=== PATIENT | male | born 1940 | race Caucasian/White ===

== ENCOUNTER 2023-02-21 07:38 | Inpatient (IN) | payer MEDICARE, OTHER ==
[~2023-02-21] VITALS: Ht 172.7 cm; Wt 77.5 kg
[2023-02-21] MEDS ORDERED: NS 500 ML IV ONE (08:15)
[2023-02-21 08:16] LABS: BASO # 0.1 10^3/uL (0.0-0.2); BASO % 0.4 % (0.0-1.0); EOS # 0.9 10^3/uL (0.0-0.5); EOS % 4.2 % (0.0-3.0); HEMATOCRIT 35.4 % (42.0-52.0); HEMOGLOBIN 11.7 g/dl (13.5-17.5); LYMPH # 1.9 10^3/uL (1.5-5.0); LYMPH % 9.2 % (24.0-44.0); MEAN CORPUSCULAR HGB CONC 33.1 g/dl (32.0-36.5); MEAN CORPUSCULAR VOLUME 108.9 fl (80.0-96.0); MONO # 1.5 10^3/uL (0.0-0.8); MONO % 7.5 % (2.0-8.0); NEUTROPHILS # 15.8 10^3/uL (1.5-8.5); NEUTROPHILS % 78.2 % (36.0-66.0); PLATELET COUNT, AUTOMATED 223 10^3/uL (150-450); RED BLOOD COUNT 3.25 10^6/uL (4.30-6.10); WHITE BLOOD COUNT 20.2 10^3/uL (4.0-10.0)
[2023-02-21 08:34] LABS: LIPASE 67 U/L (12-53)
[2023-02-21 08:36] LABS: ALBUMIN 4.2 G/DL (3.2-5.2); ALKALINE PHOSPHATASE 62 U/L (46-116); ALT/SGPT 32 U/L (7.0-40); AST/SGOT 23 U/L (<34); BILIRUBIN,DIRECT 0.2 MG/DL (<0.4); BILIRUBIN,TOTAL 0.6 MG/DL (0.3-1.2); TOTAL PROTEIN 6.8 G/DL (5.7-8.2)
[2023-02-21 08:40] LABS: THYROID STIMULATING HORMONE 1.415 uIU/ML (0.55-4.78)
[2023-02-21 08:41] LABS: CPK CREATINE PHOSPHOKINASE 74 U/L (46-171); FREE T4 0.98 NG/DL (0.89-1.76); MB/CK RELATIVE INDEX 1.35 (< OR =4)
[2023-02-21] MEDS ORDERED: ISOVUE-370 76% 100ML VIAL As Ordered ONE ×2 (08:58→09:32)
[2023-02-21] MEDS ORDERED: PIPERACILLIN/TAZOBACTAM SOD 4.5 GM in D5W MINI-BAG PLUS 50 ML IV ONE (09:00)
[2023-02-21] MEDS ORDERED: fentaNYL 100 MCG/2 ML INJECTION IV PRN (09:00)
[2023-02-21] MEDS ORDERED: NS 2,090 ML in IV 1 EA IV ONE (09:00)
[2023-02-21 09:41] LABS: PROCALCITONIN 0.05 ng/ml
[2023-02-21 10:04] LABS: CK-MB VALUE MASS 1.3 NG/ML (<3.6)
[2023-02-21 10:08] LABS: INR 1.07; PROTHROMBIN TIME 13.6 SECONDS (12.5-14.5)
[2023-02-21 10:12] LABS: RSV AMPLIFICATION NEGATIVE (NEGATIVE)
[2023-02-21 10:18] LABS: MB/CK RELATIVE INDEX 1.91 (< OR =4)
[2023-02-21 10:42] LABS: C REACTIVE PROTEIN QUANTITATIV < 0.40 MG/DL (<1.0)
[2023-02-21 10:44] LABS: AMYLASE 97 U/L (30-118)
[2023-02-21] MEDS ORDERED: MED REC IN PROGRESS XX SCH (11:40)
[2023-02-21] MEDS ORDERED: POTA-298 PO (12:29)
[2023-02-21] MEDS ORDERED: VITA-158 PO (12:29)
[2023-02-21] MEDS ORDERED: GABA-1171 PO (12:29)
[2023-02-21] MEDS ORDERED: ATOR80TA59 PO (12:29)
[2023-02-21] MEDS ORDERED: ASPI-527 PO (12:29)
[2023-02-21] MEDS ORDERED: OMEP20TA2 PO (12:29)
[2023-02-21] MEDS ORDERED: AMLO1TAB24 PO (12:29)
[2023-02-21] MEDS ORDERED: FURO20TA2 PO (12:29)
[2023-02-21] MEDS ORDERED: NAPR-849 PO (12:29)
[2023-02-21] MEDS ORDERED: ISOS1TAB36 PO (12:29)
[2023-02-21] MEDS ORDERED: D32000TA PO (12:29)
[2023-02-21] MEDS ORDERED: SPIR12.9 INH (12:29)
[2023-02-21] MEDS ORDERED: ACET-861 PO (12:29)
[2023-02-21] MEDS ORDERED: DIAZ2TAB PO (12:29)
[2023-02-21] MEDS ORDERED: FERR150C PO (12:29)
[2023-02-21] MEDS ORDERED: METO50TA7 PO (12:29)
[2023-02-21] MEDS ORDERED: ARTIDRO4 OS (12:29)
[2023-02-21] MEDS ORDERED: MAALOX 30 ML SUSP *UDC PO PRN (12:35)
[2023-02-21] MEDS ORDERED: patient comment (12:35)
[2023-02-21] MEDS ORDERED: ONDANSETRON 4MG 2ML VIAL IV PRN (12:45)
[2023-02-21] MEDS ORDERED: NS 1,000 ML IV SCH (13:30)
[2023-02-21 13:57] VITALS: BP 129/64; TEMP 97.2; O2SAT 98
[2023-02-21] MEDS ORDERED: ROSU40TA4 PO (15:09)
[2023-02-21] MEDS ORDERED: REFR1DRO8 OP (15:09)
[2023-02-21] MEDS ORDERED: HOME MED LIST COMPLETE! XX SCH (15:25)
[2023-02-21] MEDS ORDERED: diazePAM 2 MG TAB PO PRN (15:40)
[2023-02-21] MEDS: GABAPENTIN 100 MG CAP PO SCH ×2 (16:53→20:49)
[2023-02-21] MEDS: OMEPRAZOLE 20MG CAP PO SCH (16:53)
[2023-02-21 20:00] VITALS: BP 144/79; TEMP 96.7; O2SAT 96
[2023-02-21] MEDS: METOPROLOL TART 25 MG TABLET PO SCH (20:50)
[2023-02-21] MEDS: DOCUSATE SODIUM 100MG CAPSULE PO SCH (20:50)
[2023-02-21] MEDS ORDERED: ATORVASTATIN 20 MG TAB PO SCH (21:00)
[2023-02-22 04:00] VITALS: BP 139/67; TEMP 97.5; O2SAT 96
[2023-02-22 05:30] LABS: BASO # 0.1 10^3/uL (0.0-0.2); BASO % 0.5 % (0.0-1.0); EOS # 1.1 10^3/uL (0.0-0.5); EOS % 10.5 % (0.0-3.0); HEMATOCRIT 32.2 % (42.0-52.0); HEMOGLOBIN 10.4 g/dl (13.5-17.5); LYMPH # 1.7 10^3/uL (1.5-5.0); LYMPH % 16.8 % (24.0-44.0); MEAN CORPUSCULAR HEMOGLOBIN 35.3 pg (27.0-33.0); MEAN CORPUSCULAR HGB CONC 32.3 g/dl (32.0-36.5); MEAN CORPUSCULAR VOLUME 109.2 fl (80.0-96.0); MONO # 0.9 10^3/uL (0.0-0.8); MONO % 8.7 % (2.0-8.0); NEUTROPHILS # 6.3 10^3/uL (1.5-8.5); NEUTROPHILS % 62.8 % (36.0-66.0); PLATELET COUNT, AUTOMATED 164 10^3/uL (150-450); RED BLOOD COUNT 2.95 10^6/uL (4.30-6.10)
[2023-02-22 05:55] LABS: ALBUMIN 3.3 G/DL (3.2-5.2); ALKALINE PHOSPHATASE 50 U/L (46-116); ALT/SGPT 23 U/L (7.0-40); AST/SGOT 15 U/L (<34); BILIRUBIN,TOTAL 0.4 MG/DL (0.3-1.2); BLOOD UREA NITROGEN 17 MG/DL (9-23); CALCIUM LEVEL 8.5 MG/DL (8.3-10.6); CARBON DIOXIDE LEVEL 26 MMOL/L (20-31); CHLORIDE LEVEL 109 MMOL/L (98-107); CREATININE FOR GFR 0.69 MG/DL (0.70-1.30); GLOMERULAR FILTRATION RATE > 60.0 (>35); GLUCOSE, FASTING 80 MG/DL (74-106); MAGNESIUM LEVEL 1.5 MG/DL (1.8-2.4); POTASSIUM SERUM 3.6 MMOL/L (3.5-5.1); SODIUM LEVEL 143 MMOL/L (136-145); TOTAL PROTEIN 5.4 G/DL (5.7-8.2)
[2023-02-22] MEDS: MAG SULF 1GM/100ML (MAG RUN) 100 ML IV SCH ×2 (06:22→07:21)
[2023-02-22 08:05] VITALS: BP 132/61; TEMP 97.6; O2SAT 97
[2023-02-22] MEDS: DOCUSATE SODIUM 100MG CAPSULE PO SCH ×2 (08:15→22:21)
[2023-02-22] MEDS: ENOXAPARIN 40MG/0.4ML SYRINGE (J1650 PER 10MG) SC SCH (08:15)
[2023-02-22] MEDS: OMEPRAZOLE 20MG CAP PO SCH (08:15)
[2023-02-22] MEDS: GABAPENTIN 100 MG CAP PO SCH ×3 (08:15→22:22)
[2023-02-22] MEDS: amLODIPine 5 MG TAB PO SCH (08:16)
[2023-02-22] MEDS: ASPIRIN ENTERIC 325MG TAB PO SCH (08:16)
[2023-02-22] MEDS: FUROSEMIDE 20 MG TAB PO SCH (08:16)
[2023-02-22] MEDS: METOPROLOL TART 25 MG TABLET PO SCH ×2 (08:16→22:21)
[2023-02-22] MEDS: POTASSIUM CHLORIDE 10MEQ SR TABLET PO SCH (08:16)
[2023-02-22] MEDS: ISOSORBIDE MON. (IMDUR) 60MG XR TAB PO SCH (08:57)
[2023-02-22] MEDS ORDERED: OMEPRAZOLE 20MG CAP PO SCH (09:00)
[2023-02-22] MEDS ORDERED: SENNA 8.6 MG TAB (SENOKOT) PO PRN (10:15)
[2023-02-22] MEDS: ACETAMINOPHEN TAB 650MG DOSE (2X325MG) PO PRN ×3 (11:30→23:56)
[2023-02-22] MEDS: LIDOCAINE 5% (LIDODERM) PATCH TD SCH (11:30)
[2023-02-22] MEDS: MOM 30ML SUSPENSION UDC PO SCH (11:30)
[2023-02-22] MEDS: POLYVINYL ALCOHOL OPHTH SOLN 15ML (LIQUITEARS) OU PRN (11:31)
[2023-02-22 13:48] LABS: BASO # 0.1 10^3/uL (0.0-0.2); BASO % 0.5 % (0.0-1.0); EOS # 0.7 10^3/uL (0.0-0.5); EOS % 7.6 % (0.0-3.0); HEMATOCRIT 29.9 % (42.0-52.0); HEMOGLOBIN 9.8 g/dl (13.5-17.5); LYMPH # 1.2 10^3/uL (1.5-5.0); LYMPH % 12.8 % (24.0-44.0); MEAN CORPUSCULAR HGB CONC 32.8 g/dl (32.0-36.5); MEAN CORPUSCULAR VOLUME 109.9 fl (80.0-96.0); MONO # 0.9 10^3/uL (0.0-0.8); MONO % 9.4 % (2.0-8.0); NEUTROPHILS # 6.6 10^3/uL (1.5-8.5); NEUTROPHILS % 69.2 % (36.0-66.0); PLATELET COUNT, AUTOMATED 180 10^3/uL (150-450); RED BLOOD COUNT 2.72 10^6/uL (4.30-6.10); WHITE BLOOD COUNT 9.5 10^3/uL (4.0-10.0)
[2023-02-22 14:33] LABS: PERCENT SATURATION 28.3 % (19.7-50.0)
[2023-02-22 14:37] LABS: FERRITIN 977.7 NG/ML (10.5-307.3); FOLATE 15.14 NG/ML (>5.4)
[2023-02-22 15:57] VITALS: BP 135/65; TEMP 97.9; O2SAT 96
[2023-02-22 21:24] VITALS: BP 120/60; TEMP 97.4; O2SAT 99
[2023-02-22] MEDS: ATORVASTATIN 20 MG TAB PO SCH (22:22)
[2023-02-23 04:59] VITALS: BP 119/58; TEMP 97.1; O2SAT 94
[2023-02-23 05:45] LABS: BASO % 0.5 % (0.0-1.0); HEMATOCRIT 29.3 % (42.0-52.0); HEMOGLOBIN 9.7 g/dl (13.5-17.5); LYMPH % 23.8 % (24.0-44.0); MEAN CORPUSCULAR HEMOGLOBIN 35.9 pg (27.0-33.0); MEAN CORPUSCULAR HGB CONC 33.1 g/dl (32.0-36.5); MEAN CORPUSCULAR VOLUME 108.5 fl (80.0-96.0); MONO # 0.7 10^3/uL (0.0-0.8); MONO % 8.8 % (2.0-8.0); NEUTROPHILS # 4.5 10^3/uL (1.5-8.5); NEUTROPHILS % 54.4 % (36.0-66.0); PLATELET COUNT, AUTOMATED 170 10^3/uL (150-450); WHITE BLOOD COUNT 8.2 10^3/uL (4.0-10.0)
[2023-02-23 06:12] LABS: ALBUMIN 3.2 G/DL (3.2-5.2); ALKALINE PHOSPHATASE 49 U/L (46-116); ALT/SGPT 24 U/L (7.0-40); AST/SGOT 15 U/L (<34); BILIRUBIN,TOTAL 0.4 MG/DL (0.3-1.2); BLOOD UREA NITROGEN 14 MG/DL (9-23); CALCIUM LEVEL 8.4 MG/DL (8.3-10.6); CARBON DIOXIDE LEVEL 26 MMOL/L (20-31); CHLORIDE LEVEL 105 MMOL/L (98-107); CREATININE FOR GFR 0.69 MG/DL (0.70-1.30); GLOMERULAR FILTRATION RATE > 60.0 (>35); GLUCOSE, FASTING 128 MG/DL (74-106); MAGNESIUM LEVEL 1.8 MG/DL (1.8-2.4); POTASSIUM SERUM 3.6 MMOL/L (3.5-5.1); SODIUM LEVEL 139 MMOL/L (136-145); TOTAL PROTEIN 5.3 G/DL (5.7-8.2)
[2023-02-23] MEDS: ENOXAPARIN 40MG/0.4ML SYRINGE (J1650 PER 10MG) SC SCH (08:56)
[2023-02-23] MEDS: ASPIRIN ENTERIC 325MG TAB PO SCH (08:57)
[2023-02-23] MEDS: MOM 30ML SUSPENSION UDC PO SCH (08:57)
[2023-02-23] MEDS: FUROSEMIDE 20 MG TAB PO SCH (08:57)
[2023-02-23] MEDS: LIDOCAINE 5% (LIDODERM) PATCH TD SCH (08:57)
[2023-02-23 09:00] VITALS: BP 155/74
[2023-02-23] MEDS: METOPROLOL TART 25 MG TABLET PO SCH ×2 (09:00→20:31)
[2023-02-23] MEDS: GABAPENTIN 100 MG CAP PO SCH ×3 (09:01→21:07)
[2023-02-23] MEDS: OMEPRAZOLE 20MG CAP PO SCH (09:01)
[2023-02-23] MEDS: ISOSORBIDE MON. (IMDUR) 60MG XR TAB PO SCH (09:01)
[2023-02-23] MEDS: amLODIPine 5 MG TAB PO SCH (09:01)
[2023-02-23] MEDS: DOCUSATE SODIUM 100MG CAPSULE PO SCH ×2 (09:01→21:06)
[2023-02-23] MEDS: POTASSIUM CHLORIDE 10MEQ SR TABLET PO SCH (09:02)
[2023-02-23] MEDS ORDERED: ALBUTEROL 90 MCG/ACT 8GM HFA INHALER INH PRN (09:55)
[2023-02-23] MEDS: POLYVINYL ALCOHOL OPHTH SOLN 15ML (LIQUITEARS) OU PRN ×2 (10:01→15:12)
[2023-02-23] MEDS: SYMBICORT 80/4.5MCG INHALER 6GM INH SCH ×2 (11:08→19:46)
[2023-02-23] MEDS: TIOTROPIUM INHALER/CAPSULE (SPIRIVA) INH SCH (11:08)
[2023-02-23] MEDS: ACETAMINOPHEN TAB 650MG DOSE (2X325MG) PO PRN ×2 (15:12→23:32)
[2023-02-23 16:01] VITALS: BP 105/56; TEMP 97.6; O2SAT 97
[2023-02-23 19:21] VITALS: BP 98/55; TEMP 97.8; O2SAT 96
[2023-02-23] MEDS: ATORVASTATIN 20 MG TAB PO SCH (21:06)
[2023-02-24 03:30] VITALS: BP 140/63; TEMP 97.3; O2SAT 95
[2023-02-24 05:57] LABS: BASO # 0.1 10^3/uL (0.0-0.2); BASO % 0.6 % (0.0-1.0); EOS # 0.8 10^3/uL (0.0-0.5); EOS % 9.8 % (0.0-3.0); HEMATOCRIT 28.3 % (42.0-52.0); HEMOGLOBIN 9.5 g/dl (13.5-17.5); LYMPH # 1.7 10^3/uL (1.5-5.0); LYMPH % 22.1 % (24.0-44.0); MEAN CORPUSCULAR HEMOGLOBIN 36.5 pg (27.0-33.0); MEAN CORPUSCULAR HGB CONC 33.6 g/dl (32.0-36.5); MEAN CORPUSCULAR VOLUME 108.8 fl (80.0-96.0); MONO # 0.5 10^3/uL (0.0-0.8); MONO % 6.6 % (2.0-8.0); NEUTROPHILS # 4.7 10^3/uL (1.5-8.5); NEUTROPHILS % 60.4 % (36.0-66.0); PLATELET COUNT, AUTOMATED 169 10^3/uL (150-450); WHITE BLOOD COUNT 7.7 10^3/uL (4.0-10.0)
[2023-02-24 06:24] LABS: ALBUMIN 3.2 G/DL (3.2-5.2); ALKALINE PHOSPHATASE 50 U/L (46-116); ALT/SGPT 25 U/L (7.0-40); AST/SGOT 20 U/L (<34); BILIRUBIN,TOTAL 0.3 MG/DL (0.3-1.2); BLOOD UREA NITROGEN 13 MG/DL (9-23); CALCIUM LEVEL 8.1 MG/DL (8.3-10.6); CARBON DIOXIDE LEVEL 25 MMOL/L (20-31); CHLORIDE LEVEL 105 MMOL/L (98-107); CREATININE FOR GFR 0.69 MG/DL (0.70-1.30); GLOMERULAR FILTRATION RATE > 60.0 (>35); GLUCOSE, FASTING 124 MG/DL (74-106); MAGNESIUM LEVEL 1.8 MG/DL (1.8-2.4); POTASSIUM SERUM 3.9 MMOL/L (3.5-5.1); SODIUM LEVEL 140 MMOL/L (136-145); TOTAL PROTEIN 5.3 G/DL (5.7-8.2)
[2023-02-24 07:54] VITALS: BP 137/83; TEMP 97.5; O2SAT 97
[2023-02-24] MEDS: SYMBICORT 80/4.5MCG INHALER 6GM INH SCH ×2 (08:03→19:06)
[2023-02-24] MEDS: TIOTROPIUM INHALER/CAPSULE (SPIRIVA) INH SCH (08:03)
[2023-02-24] MEDS ORDERED: PILL CUTTER 1 EACH XX PRN (08:10)
[2023-02-24] MEDS: LIDOCAINE 5% (LIDODERM) PATCH TD SCH (08:43)
[2023-02-24] MEDS: ENOXAPARIN 40MG/0.4ML SYRINGE (J1650 PER 10MG) SC SCH (08:43)
[2023-02-24] MEDS: POTASSIUM CHLORIDE 10MEQ SR TABLET PO SCH (08:44)
[2023-02-24] MEDS: FUROSEMIDE 20 MG TAB PO SCH (08:44)
[2023-02-24] MEDS: DOCUSATE SODIUM 100MG CAPSULE PO SCH ×2 (08:44→20:33)
[2023-02-24] MEDS: METOPROLOL TART 25 MG TABLET PO SCH ×2 (08:44→20:34)
[2023-02-24] MEDS: ASPIRIN ENTERIC 325MG TAB PO SCH (08:44)
[2023-02-24] MEDS: OMEPRAZOLE 20MG CAP PO SCH (08:44)
[2023-02-24] MEDS: GABAPENTIN 100 MG CAP PO SCH ×3 (08:45→20:33)
[2023-02-24] MEDS: traMADol 50 MG TAB PO PRN (08:45)
[2023-02-24] MEDS: amLODIPine 5 MG TAB PO SCH (08:45)
[2023-02-24] MEDS: ISOSORBIDE MON. (IMDUR) 60MG XR TAB PO SCH (08:51)
[2023-02-24] MEDS: MOM 30ML SUSPENSION UDC PO SCH (08:53)
[2023-02-24 19:23] VITALS: BP 116/59; TEMP 97.1; O2SAT 95
[2023-02-24] MEDS: ATORVASTATIN 20 MG TAB PO SCH (20:33)
[2023-02-24] MEDS: ACETAMINOPHEN TAB 650MG DOSE (2X325MG) PO PRN (20:35)
[2023-02-25 05:17] LABS: BASO % 0.5 % (0.0-1.0); EOS # 0.6 10^3/uL (0.0-0.5); EOS % 8.5 % (0.0-3.0); HEMATOCRIT 31.2 % (42.0-52.0); HEMOGLOBIN 10.5 g/dl (13.5-17.5); LYMPH # 1.6 10^3/uL (1.5-5.0); LYMPH % 21.4 % (24.0-44.0); MEAN CORPUSCULAR HEMOGLOBIN 36.5 pg (27.0-33.0); MEAN CORPUSCULAR HGB CONC 33.7 g/dl (32.0-36.5); MEAN CORPUSCULAR VOLUME 108.3 fl (80.0-96.0); MONO # 0.6 10^3/uL (0.0-0.8); MONO % 7.9 % (2.0-8.0); NEUTROPHILS # 4.4 10^3/uL (1.5-8.5); NEUTROPHILS % 60.9 % (36.0-66.0); PLATELET COUNT, AUTOMATED 169 10^3/uL (150-450); RED BLOOD COUNT 2.88 10^6/uL (4.30-6.10); WHITE BLOOD COUNT 7.3 10^3/uL (4.0-10.0)
[2023-02-25 05:55] LABS: ALBUMIN 3.5 G/DL (3.2-5.2); ALKALINE PHOSPHATASE 52 U/L (46-116); ALT/SGPT 23 U/L (7.0-40); AST/SGOT 13 U/L (<34); BILIRUBIN,TOTAL 0.5 MG/DL (0.3-1.2); BLOOD UREA NITROGEN 10 MG/DL (9-23); CALCIUM LEVEL 8.5 MG/DL (8.3-10.6); CARBON DIOXIDE LEVEL 28 MMOL/L (20-31); CHLORIDE LEVEL 103 MMOL/L (98-107); CREATININE FOR GFR 0.64 MG/DL (0.70-1.30); GLOMERULAR FILTRATION RATE > 60.0 (>35); GLUCOSE, FASTING 96 MG/DL (74-106); MAGNESIUM LEVEL 1.8 MG/DL (1.8-2.4); POTASSIUM SERUM 3.8 MMOL/L (3.5-5.1); SODIUM LEVEL 139 MMOL/L (136-145); TOTAL PROTEIN 5.7 G/DL (5.7-8.2)
[2023-02-25] MEDS: SYMBICORT 80/4.5MCG INHALER 6GM INH SCH ×2 (07:52→20:07)
[2023-02-25] MEDS: TIOTROPIUM INHALER/CAPSULE (SPIRIVA) INH SCH (07:52)
[2023-02-25 08:07] VITALS: BP 130/72; TEMP 97.7; O2SAT 96
[2023-02-25] MEDS: LIDOCAINE 5% (LIDODERM) PATCH TD SCH (08:13)
[2023-02-25] MEDS: ASPIRIN ENTERIC 325MG TAB PO SCH (08:13)
[2023-02-25] MEDS: FUROSEMIDE 20 MG TAB PO SCH (08:14)
[2023-02-25] MEDS: OMEPRAZOLE 20MG CAP PO SCH (08:14)
[2023-02-25] MEDS: METOPROLOL TART 25 MG TABLET PO SCH ×2 (08:14→20:22)
[2023-02-25] MEDS: ACETAMINOPHEN TAB 650MG DOSE (2X325MG) PO PRN (08:14)
[2023-02-25] MEDS: ISOSORBIDE MON. (IMDUR) 60MG XR TAB PO SCH (08:15)
[2023-02-25] MEDS: GABAPENTIN 100 MG CAP PO SCH ×3 (08:15→20:22)
[2023-02-25] MEDS: amLODIPine 5 MG TAB PO SCH (08:15)
[2023-02-25] MEDS: DOCUSATE SODIUM 100MG CAPSULE PO SCH ×2 (08:15→20:21)
[2023-02-25] MEDS: POTASSIUM CHLORIDE 10MEQ SR TABLET PO SCH (08:15)
[2023-02-25] MEDS: MOM 30ML SUSPENSION UDC PO SCH (08:16)
[2023-02-25] MEDS: ENOXAPARIN 40MG/0.4ML SYRINGE (J1650 PER 10MG) SC SCH (08:18)
[2023-02-25 19:50] VITALS: BP 112/57; TEMP 97.8; O2SAT 96
[2023-02-25] MEDS: ATORVASTATIN 20 MG TAB PO SCH (20:21)
[2023-02-26] MEDS: traMADol 50 MG TAB PO PRN (02:50)
[2023-02-26 04:41] LABS: BASO # 0.1 10^3/uL (0.0-0.2); BASO % 0.7 % (0.0-1.0); EOS # 0.7 10^3/uL (0.0-0.5); EOS % 7.5 % (0.0-3.0); HEMATOCRIT 31.7 % (42.0-52.0); HEMOGLOBIN 10.4 g/dl (13.5-17.5); LYMPH # 2.1 10^3/uL (1.5-5.0); LYMPH % 23.1 % (24.0-44.0); MEAN CORPUSCULAR HGB CONC 32.8 g/dl (32.0-36.5); MEAN CORPUSCULAR VOLUME 109.7 fl (80.0-96.0); MONO # 0.8 10^3/uL (0.0-0.8); NEUTROPHILS # 5.3 10^3/uL (1.5-8.5); NEUTROPHILS % 58.9 % (36.0-66.0); PLATELET COUNT, AUTOMATED 190 10^3/uL (150-450); RED BLOOD COUNT 2.89 10^6/uL (4.30-6.10)
[2023-02-26 05:06] LABS: ALBUMIN 3.4 G/DL (3.2-5.2); ALKALINE PHOSPHATASE 51 U/L (46-116); ALT/SGPT 23 U/L (7.0-40); AST/SGOT 13 U/L (<34); BILIRUBIN,TOTAL 0.3 MG/DL (0.3-1.2); BLOOD UREA NITROGEN 13 MG/DL (9-23); CALCIUM LEVEL 8.5 MG/DL (8.3-10.6); CARBON DIOXIDE LEVEL 26 MMOL/L (20-31); CHLORIDE LEVEL 105 MMOL/L (98-107); CREATININE FOR GFR 0.73 MG/DL (0.70-1.30); GLOMERULAR FILTRATION RATE > 60.0 (>35); GLUCOSE, FASTING 101 MG/DL (74-106); MAGNESIUM LEVEL 1.6 MG/DL (1.8-2.4); SODIUM LEVEL 140 MMOL/L (136-145); TOTAL PROTEIN 5.6 G/DL (5.7-8.2)
[2023-02-26] MEDS ORDERED: MAGNESIUM OXIDE 400MG TAB (MAG-OX) PO ONE (07:00)
[2023-02-26] MEDS ORDERED: MAG SULF 1GM/100ML (MAG RUN) 1 GM in IV 1 EA IV ONE ×2 (07:00→08:00)
[2023-02-26 07:26] VITALS: BP 129/71; TEMP 97.6; O2SAT 96
[2023-02-26] MEDS: TIOTROPIUM INHALER/CAPSULE (SPIRIVA) INH SCH (08:19)
[2023-02-26] MEDS: SYMBICORT 80/4.5MCG INHALER 6GM INH SCH ×2 (08:20→19:26)
[2023-02-26] MEDS: MOM 30ML SUSPENSION UDC PO SCH (09:00)
[2023-02-26] MEDS: ENOXAPARIN 40MG/0.4ML SYRINGE (J1650 PER 10MG) SC SCH (09:44)
[2023-02-26] MEDS: OMEPRAZOLE 20MG CAP PO SCH (09:44)
[2023-02-26] MEDS: ASPIRIN ENTERIC 325MG TAB PO SCH (09:44)
[2023-02-26] MEDS: FUROSEMIDE 20 MG TAB PO SCH (09:45)
[2023-02-26] MEDS: METOPROLOL TART 25 MG TABLET PO SCH ×2 (09:45→20:47)
[2023-02-26] MEDS: POTASSIUM CHLORIDE 10MEQ SR TABLET PO SCH (09:45)
[2023-02-26] MEDS: DOCUSATE SODIUM 100MG CAPSULE PO SCH ×2 (09:45→20:47)
[2023-02-26] MEDS: amLODIPine 5 MG TAB PO SCH (09:46)
[2023-02-26] MEDS: ACETAMINOPHEN TAB 650MG DOSE (2X325MG) PO PRN ×2 (09:46→20:47)
[2023-02-26] MEDS: GABAPENTIN 100 MG CAP PO SCH ×3 (09:47→20:47)
[2023-02-26] MEDS: LIDOCAINE 5% (LIDODERM) PATCH TD SCH (09:47)
[2023-02-26] MEDS: POLYVINYL ALCOHOL OPHTH SOLN 15ML (LIQUITEARS) OU PRN (09:51)
[2023-02-26] MEDS: ISOSORBIDE MON. (IMDUR) 60MG XR TAB PO SCH (09:51)
[2023-02-26 20:09] VITALS: BP 105/60; TEMP 98.9; O2SAT 96
[2023-02-26] MEDS: ATORVASTATIN 20 MG TAB PO SCH (20:47)
[2023-02-27 04:42] LABS: BASO # 0.1 10^3/uL (0.0-0.2); BASO % 0.7 % (0.0-1.0); EOS # 0.7 10^3/uL (0.0-0.5); EOS % 9.1 % (0.0-3.0); HEMATOCRIT 31.1 % (42.0-52.0); HEMOGLOBIN 10.3 g/dl (13.5-17.5); LYMPH # 2.2 10^3/uL (1.5-5.0); LYMPH % 26.8 % (24.0-44.0); MEAN CORPUSCULAR HGB CONC 33.1 g/dl (32.0-36.5); MEAN CORPUSCULAR VOLUME 108.7 fl (80.0-96.0); MONO # 0.8 10^3/uL (0.0-0.8); MONO % 9.9 % (2.0-8.0); NEUTROPHILS # 4.2 10^3/uL (1.5-8.5); NEUTROPHILS % 52.3 % (36.0-66.0); PLATELET COUNT, AUTOMATED 179 10^3/uL (150-450); RED BLOOD COUNT 2.86 10^6/uL (4.30-6.10); WHITE BLOOD COUNT 8.1 10^3/uL (4.0-10.0)
[2023-02-27 05:10] LABS: ALBUMIN 3.4 G/DL (3.2-5.2); ALKALINE PHOSPHATASE 50 U/L (46-116); ALT/SGPT 21 U/L (7.0-40); AST/SGOT 10 U/L (<34); BILIRUBIN,TOTAL 0.5 MG/DL (0.3-1.2); BLOOD UREA NITROGEN 12 MG/DL (9-23); CALCIUM LEVEL 8.3 MG/DL (8.3-10.6); CARBON DIOXIDE LEVEL 29 MMOL/L (20-31); CHLORIDE LEVEL 102 MMOL/L (98-107); CREATININE FOR GFR 0.72 MG/DL (0.70-1.30); GLOMERULAR FILTRATION RATE > 60.0 (>35); GLUCOSE, FASTING 87 MG/DL (74-106); MAGNESIUM LEVEL 1.6 MG/DL (1.8-2.4); POTASSIUM SERUM 4.4 MMOL/L (3.5-5.1); SODIUM LEVEL 138 MMOL/L (136-145); TOTAL PROTEIN 5.6 G/DL (5.7-8.2)
[2023-02-27] MEDS: TIOTROPIUM INHALER/CAPSULE (SPIRIVA) INH SCH (08:00)
[2023-02-27 08:27] VITALS: BP 148/70; TEMP 97.6; O2SAT 99
[2023-02-27] MEDS: SYMBICORT 80/4.5MCG INHALER 6GM INH SCH ×2 (08:33→18:47)
[2023-02-27] MEDS: LIDOCAINE 5% (LIDODERM) PATCH TD SCH (08:46)
[2023-02-27] MEDS: ISOSORBIDE MON. (IMDUR) 60MG XR TAB PO SCH (08:47)
[2023-02-27] MEDS: ASPIRIN ENTERIC 325MG TAB PO SCH (08:47)
[2023-02-27] MEDS: OMEPRAZOLE 20MG CAP PO SCH (08:47)
[2023-02-27] MEDS: ENOXAPARIN 40MG/0.4ML SYRINGE (J1650 PER 10MG) SC SCH (08:47)
[2023-02-27] MEDS: FUROSEMIDE 20 MG TAB PO SCH (08:48)
[2023-02-27] MEDS: METOPROLOL TART 25 MG TABLET PO SCH ×2 (08:49→20:39)
[2023-02-27] MEDS: MOM 30ML SUSPENSION UDC PO SCH (08:50)
[2023-02-27] MEDS: DOCUSATE SODIUM 100MG CAPSULE PO SCH ×2 (08:50→20:38)
[2023-02-27] MEDS: POTASSIUM CHLORIDE 10MEQ SR TABLET PO SCH (08:50)
[2023-02-27] MEDS: GABAPENTIN 100 MG CAP PO SCH ×3 (08:50→20:38)
[2023-02-27] MEDS: amLODIPine 5 MG TAB PO SCH (08:51)
[2023-02-27] MEDS ORDERED: TRAM50TA2 PO (14:45)
[2023-02-27] MEDS ORDERED: ATOR40TA75 PO (14:45)
[2023-02-27] MEDS ORDERED: OMEP-173 PO (14:45)
[2023-02-27] MEDS ORDERED: SYMB80INH INH (14:45)
[2023-02-27] MEDS ORDERED: TIOT18INH INH (14:45)
[2023-02-27] MEDS ORDERED: FURO20TA2 PO (14:45)
[2023-02-27] MEDS ORDERED: COLA100C5 PO (14:45)
[2023-02-27] MEDS ORDERED: LIDO5TD TD (14:45)
[2023-02-27] MEDS: traMADol 50 MG TAB PO PRN (18:49)
[2023-02-27] MEDS: ATORVASTATIN 20 MG TAB PO SCH (20:38)
[2023-02-27] MEDS: ACETAMINOPHEN TAB 650MG DOSE (2X325MG) PO PRN (22:59)
[2023-02-28 04:37] VITALS: BP 130/71; TEMP 98.1; O2SAT 96
[2023-02-28 04:59] LABS: BASO # 0.1 10^3/uL (0.0-0.2); BASO % 0.5 % (0.0-1.0); EOS # 0.7 10^3/uL (0.0-0.5); EOS % 7.2 % (0.0-3.0); HEMATOCRIT 31.8 % (42.0-52.0); HEMOGLOBIN 10.6 g/dl (13.5-17.5); LYMPH # 2.5 10^3/uL (1.5-5.0); LYMPH % 24.7 % (24.0-44.0); MEAN CORPUSCULAR HEMOGLOBIN 36.3 pg (27.0-33.0); MEAN CORPUSCULAR HGB CONC 33.3 g/dl (32.0-36.5); MEAN CORPUSCULAR VOLUME 108.9 fl (80.0-96.0); MONO % 9.6 % (2.0-8.0); NEUTROPHILS # 5.8 10^3/uL (1.5-8.5); NEUTROPHILS % 57.1 % (36.0-66.0); PLATELET COUNT, AUTOMATED 184 10^3/uL (150-450); RED BLOOD COUNT 2.92 10^6/uL (4.30-6.10); WHITE BLOOD COUNT 10.1 10^3/uL (4.0-10.0)
[2023-02-28 05:23] LABS: ALBUMIN 3.4 G/DL (3.2-5.2); ALKALINE PHOSPHATASE 50 U/L (46-116); ALT/SGPT 19 U/L (7.0-40); AST/SGOT 13 U/L (<34); BILIRUBIN,TOTAL 0.5 MG/DL (0.3-1.2); BLOOD UREA NITROGEN 13 MG/DL (9-23); CALCIUM LEVEL 8.7 MG/DL (8.3-10.6); CARBON DIOXIDE LEVEL 26 MMOL/L (20-31); CHLORIDE LEVEL 101 MMOL/L (98-107); CREATININE FOR GFR 0.79 MG/DL (0.70-1.30); GLOMERULAR FILTRATION RATE > 60.0 (>35); GLUCOSE, FASTING 85 MG/DL (74-106); MAGNESIUM LEVEL 1.5 MG/DL (1.8-2.4); POTASSIUM SERUM 4.3 MMOL/L (3.5-5.1); SODIUM LEVEL 136 MMOL/L (136-145); TOTAL PROTEIN 5.5 G/DL (5.7-8.2)
[2023-02-28] MEDS ORDERED: MAGNESIUM OXIDE 400MG TAB (MAG-OX) PO ONE (07:00)
[2023-02-28] MEDS: TIOTROPIUM INHALER/CAPSULE (SPIRIVA) INH SCH (07:36)
[2023-02-28] MEDS: SYMBICORT 80/4.5MCG INHALER 6GM INH SCH (07:37)
[2023-02-28 08:18] VITALS: BP 123/58; TEMP 97.5; O2SAT 96
[2023-02-28] MEDS: ASPIRIN ENTERIC 325MG TAB PO SCH (08:22)
[2023-02-28] MEDS: OMEPRAZOLE 20MG CAP PO SCH (08:23)
[2023-02-28] MEDS: ACETAMINOPHEN TAB 650MG DOSE (2X325MG) PO PRN (08:23)
[2023-02-28] MEDS: LIDOCAINE 5% (LIDODERM) PATCH TD SCH (08:24)
[2023-02-28] MEDS: DOCUSATE SODIUM 100MG CAPSULE PO SCH (08:24)
[2023-02-28] MEDS: ENOXAPARIN 40MG/0.4ML SYRINGE (J1650 PER 10MG) SC SCH (08:24)
[2023-02-28] MEDS: GABAPENTIN 100 MG CAP PO SCH (08:24)
[2023-02-28] MEDS: POTASSIUM CHLORIDE 10MEQ SR TABLET PO SCH (08:25)
[2023-02-28] MEDS: ISOSORBIDE MON. (IMDUR) 60MG XR TAB PO SCH (08:26)
[2023-02-28 08:27] VITALS: BP 123/58
[2023-02-28] MEDS: amLODIPine 5 MG TAB PO SCH (08:27)
[2023-02-28] MEDS: METOPROLOL TART 25 MG TABLET PO SCH (08:27)
[2023-02-28] MEDS: MOM 30ML SUSPENSION UDC PO SCH (08:28)
[2023-02-28] MEDS: FUROSEMIDE 20 MG TAB PO SCH (08:28)
[2023-02-28] MEDS: traMADol 50 MG TAB PO PRN (09:46)
[2023-02-28] MEDS ORDERED: TRAM50TA2 PO (11:03)
[2023-02-28] MEDS ORDERED: MAGN400T2 PO (11:08)
== END 2023-02-28 14:06 | disposition home or self-care (01) | DRG 392 ==
LOC: EDBD 07:38 → M ED 07:38 → M ED INP 11:08 → OBSVTOIN 11:18 → M PCU 13:47
PROVIDERS: ADMIT Internal Medicine; ATTEND Internal Medicine
DX: R11.2 Nausea with vomiting, unspecified (principal); I10 Essential (primary) hypertension; E78.5 Hyperlipidemia, unspecified; R07.89 Other chest pain; I69.392 Facial weakness following cerebral infarction; G62.9 Polyneuropathy, unspecified; R10.13 Epigastric pain; R54 Age-related physical debility; J44.9 Chronic obstructive pulmonary disease, unspecified; R42 Dizziness and giddiness; M54.50 Low back pain, unspecified; R29.6 Repeated falls; K59.00 Constipation, unspecified; K21.9 Gastro-esophageal reflux disease without esophagitis; I25.10 Atherosclerotic heart disease of native coronary artery without angina pectoris; D72.829 Elevated white blood cell count, unspecified; I69.320 Aphasia following cerebral infarction; Z95.1 Presence of aortocoronary bypass graft; Z85.46 Personal history of malignant neoplasm of prostate; Z92.3 Personal history of irradiation; Z95.2 Presence of prosthetic heart valve; Z79.82 Long term (current) use of aspirin; Z79.899 Other long term (current) drug therapy

== ENCOUNTER 2023-04-13 09:42 | Emergency (ER) | payer MEDICARE, MEDICAID ==
[~2023-04-13] VITALS: Ht 172.7 cm; Wt 81.3 kg
[~2023-04-13 09:42] MED LIST: ACET-861 PO; AMLO1TAB24 PO; ARTIDRO4 OS; ASPI-527 PO; ATOR40TA75 PO; ATOR80TA59 PO; COLA100C5 PO; D32000TA PO; DIAZ2TAB PO; FERR150C PO; FURO20TA2 PO; GABA-1171 PO; IBUP-1114 PO; ISOS1TAB36 PO; LIDO5TD TD; MAGN400T2 PO; METO50TA7 PO; NAPR-849 PO; OMEP-173 PO; OMEP20TA2 PO; PERC5TAB12 PO; POTA-298 PO; REFR1DRO8 OP; ROSU20TA61 PO; ROSU40TA4 PO; SPIR12.9 INH; SYMB80INH INH; TIOT18INH INH; TRAM50TA2 PO; VITA-158 PO; patient comment
[2023-04-13] MEDS ORDERED: IPRATROPIUM 0.5MG/ALBUTEROL 2.5MG INH SOL UD 3ML (DUONEB) NEB ONE (10:00)
[2023-04-13 10:10] LABS: VENOUS BASE EXCESS -0.6 (-2.0-2.0); VENOUS PARTIAL PRESSURE CO2 44.9 mmHg (38.0-50.0); VENOUS PARTIAL PRESSURE O2 39.8 mmHg (30.0-50.0); VENOUS PH 7.363 UNITS (7.330-7.430); VENOUS STANDARD HCO3 23.4 MMOL/L; VENOUS TOTAL CO2 26.3 MMOL/L (24.0-28.0)
[2023-04-13 10:17] LABS: BASO # 0.1 10^3/uL (0.0-0.2); BASO % 0.5 % (0.0-1.0); EOS # 0.5 10^3/uL (0.0-0.5); EOS % 5.4 % (0.0-3.0); HEMATOCRIT 31.5 % (42.0-52.0); HEMOGLOBIN 10.9 g/dl (13.5-17.5); LYMPH # 2.1 10^3/uL (1.5-5.0); LYMPH % 22.3 % (24.0-44.0); MEAN CORPUSCULAR HEMOGLOBIN 36.9 pg (27.0-33.0); MEAN CORPUSCULAR HGB CONC 34.6 g/dl (32.0-36.5); MEAN CORPUSCULAR VOLUME 106.8 fl (80.0-96.0); MONO % 10.2 % (2.0-8.0); NEUTROPHILS # 5.7 10^3/uL (1.5-8.5); NEUTROPHILS % 60.7 % (36.0-66.0); PLATELET COUNT, AUTOMATED 203 10^3/uL (150-450); RED BLOOD COUNT 2.95 10^6/uL (4.30-6.10); WHITE BLOOD COUNT 9.4 10^3/uL (4.0-10.0)
[2023-04-13 10:27] LABS: INR 1.04; PROTHROMBIN TIME 13.3 SECONDS (12.5-14.5)
[2023-04-13 10:45] LABS: CK-MB VALUE MASS 1.2 NG/ML (<3.6)
[2023-04-13 10:48] LABS: ALKALINE PHOSPHATASE 66 U/L (46-116); ALT/SGPT 18 U/L (7.0-40); AST/SGOT 21 U/L (<34); BILIRUBIN,DIRECT 0.2 MG/DL (<0.4); BILIRUBIN,TOTAL 0.7 MG/DL (0.3-1.2); BLOOD UREA NITROGEN 16 MG/DL (9-23); CALCIUM LEVEL 8.8 MG/DL (8.3-10.6); CARBON DIOXIDE LEVEL 25 MMOL/L (20-31); CHLORIDE LEVEL 104 MMOL/L (98-107); CREATININE FOR GFR 0.75 MG/DL (0.70-1.30); GLOMERULAR FILTRATION RATE > 60.0 (>35); GLUCOSE, FASTING 96 MG/DL (74-106); POTASSIUM SERUM 4.2 MMOL/L (3.5-5.1); SODIUM LEVEL 137 MMOL/L (136-145); TOTAL PROTEIN 6.5 G/DL (5.7-8.2)
[2023-04-13 10:50] LABS: THYROID STIMULATING HORMONE 2.915 uIU/ML (0.55-4.78)
[2023-04-13 10:53] LABS: PARTIAL THROMBOPLASTIN TIME < 20.0 SECONDS (24.8-34.2)
[2023-04-13 10:54] LABS: CPK CREATINE PHOSPHOKINASE 84 U/L (46-171); MB/CK RELATIVE INDEX 1.42 (< OR =4); PROCALCITONIN <0.04 ng/ml
[2023-04-13 12:03] LABS: CK-MB VALUE MASS 1.3 NG/ML (<3.6); MB/CK RELATIVE INDEX 1.78 (< OR =4)
[2023-04-13] MEDS ORDERED: predniSONE 20 MG TAB PO ONE (14:10)
[2023-04-13] MEDS ORDERED: PRED20TA PO (14:13)
[2023-04-13] MEDS ORDERED: VENTAER INH (14:13)
[2023-04-13 14:30] VITALS: BP 127/76; TEMP 96.6; O2SAT 99
== END 2023-04-13 15:02 | disposition home or self-care (01) ==
LOC: M ED 09:42 → EDBD 09:42 → M ED 15:02
DX: R06.02 Shortness of breath (principal); I25.10 Atherosclerotic heart disease of native coronary artery without angina pectoris; J44.9 Chronic obstructive pulmonary disease, unspecified; E78.5 Hyperlipidemia, unspecified; I10 Essential (primary) hypertension; Z86.73 Personal history of transient ischemic attack (TIA), and cerebral infarction without residual deficits; Z95.1 Presence of aortocoronary bypass graft; Z79.899 Other long term (current) drug therapy
CPT/HCPCS: 71045; 80048; 80076; 81001; 82550; 82553; 82803; 83605; 83880; 84145; 84443; 84484; 85025; 85610; 85730; 87040; 87486; 87581; 87633; 87798; 93005; 93041; 94640; 94760; 99285; J7512

== ENCOUNTER 2023-04-29 07:12 | Emergency (ER) | payer MEDICARE, MEDICAID ==
[~2023-04-29] VITALS: Ht 172.7 cm; Wt 82.2 kg
[~2023-04-29 07:12] MED LIST changes: +PRED20TA PO; +VENTAER INH
[2023-04-29] MEDS ORDERED: NITROGLYCERIN 2% OINT 1 GM *U/D* PKT TOP ONE ×2 (07:35→22:45)
[2023-04-29 07:48] LABS: BASO # 0.1 10^3/uL (0.0-0.2); BASO % 0.4 % (0.0-1.0); EOS # 0.8 10^3/uL (0.0-0.5); EOS % 4.2 % (0.0-3.0); HEMATOCRIT 32.6 % (42.0-52.0); HEMOGLOBIN 11.2 g/dl (13.5-17.5); LYMPH # 4.1 10^3/uL (1.5-5.0); LYMPH % 21.5 % (24.0-44.0); MEAN CORPUSCULAR HEMOGLOBIN 36.4 pg (27.0-33.0); MEAN CORPUSCULAR HGB CONC 34.4 g/dl (32.0-36.5); MEAN CORPUSCULAR VOLUME 105.8 fl (80.0-96.0); MONO # 0.9 10^3/uL (0.0-0.8); MONO % 4.7 % (2.0-8.0); NEUTROPHILS # 12.9 10^3/uL (1.5-8.5); NEUTROPHILS % 67.4 % (36.0-66.0); PLATELET COUNT, AUTOMATED 181 10^3/uL (150-450); RED BLOOD COUNT 3.08 10^6/uL (4.30-6.10); WHITE BLOOD COUNT 19.2 10^3/uL (4.0-10.0)
[2023-04-29 08:08] LABS: INR 1.05; PROTHROMBIN TIME 13.4 SECONDS (12.5-14.5)
[2023-04-29] MEDS ORDERED: ONDANSETRON 4MG 2ML VIAL IV ONE ×2 (08:10→23:10)
[2023-04-29] MEDS: MORPHINE 2 MG/ML 1ML VIAL IV PRN ×4 (08:20→15:56)
[2023-04-29] MEDS ORDERED: ISOVUE-370 76% 100ML VIAL As Ordered ONE (08:22)
[2023-04-29 08:25] LABS: VENOUS BASE EXCESS -3.2 (-2.0-2.0); VENOUS HCO3 22.9 MMOL/L (23.0-27.0); VENOUS O2 SATURATION 84.6 % (60.0-80.0); VENOUS PARTIAL PRESSURE CO2 45.7 mmHg (38.0-50.0); VENOUS PARTIAL PRESSURE O2 54.8 mmHg (30.0-50.0); VENOUS PH 7.318 UNITS (7.330-7.430); VENOUS STANDARD HCO3 21.5 MMOL/L; VENOUS TOTAL CO2 24.3 MMOL/L (24.0-28.0)
[2023-04-29 08:49] LABS: PARTIAL THROMBOPLASTIN TIME 24.2 SECONDS (24.8-34.2)
[2023-04-29] MEDS ORDERED: HEPARIN SOD (PORCINE) 5000UNITS/ML 1ML VIAL/SYRINGE IV ONE (14:35)
[2023-04-29] MEDS ORDERED: HEPARIN DRIP 25,000 UNITS in IV 1 EA IV SCH ×2 (14:35→17:45)
[2023-04-29] MEDS ORDERED: HEPARIN SOD (PORCINE) 5000UNITS/ML 1ML VIAL/SYRINGE IV PRN (17:45)
[2023-04-29] MEDS ORDERED: MORPHINE 2 MG/ML 1ML VIAL IV ONE (21:15)
[2023-04-29 21:25] LABS: INR 1.14; PROTHROMBIN TIME 14.3 SECONDS (12.5-14.5)
[2023-04-29] MEDS ORDERED: hydrALAZINE 20MG/ML 1ML VIAL IV ONE (22:40)
[2023-04-29 22:49] VITALS: BP 165/101
[2023-04-29 23:49] LABS: BLOOD UREA NITROGEN 12 MG/DL (9-23); CALCIUM LEVEL 8.2 MG/DL (8.3-10.6); CARBON DIOXIDE LEVEL 24 MMOL/L (20-31); CHLORIDE LEVEL 103 MMOL/L (98-107); CREATININE FOR GFR 0.57 MG/DL (0.70-1.30); GLOMERULAR FILTRATION RATE > 60.0 (>35); GLUCOSE, FASTING 105 MG/DL (74-106); MAGNESIUM LEVEL 1.2 MG/DL (1.8-2.4); POTASSIUM SERUM 4.5 MMOL/L (3.5-5.1); SODIUM LEVEL 138 MMOL/L (136-145)
[2023-04-30 03:17] LABS: INR 1.12; PROTHROMBIN TIME 14.1 SECONDS (12.5-14.5)
[2023-04-30 03:19] LABS: PARTIAL THROMBOPLASTIN TIME 83.7 SECONDS (24.8-34.2)
[2023-04-30] MEDS ORDERED: MORPHINE 4 MG/ML 1ML VIAL IV ONE (03:55)
[2023-04-30 06:47] VITALS: BP 154/89; TEMP 98.1; O2SAT 98
[2023-04-30 15:34] LABS: MB/CK RELATIVE INDEX 7.2 (< OR =4)
[2023-04-30 15:35] LABS: CK-MB VALUE MASS 6.2 NG/ML (0.0-10.4)
== END 2023-04-30 06:51 | disposition short-term general hospital (02) ==
LOC: M ED 07:12
DX: I21.4 Non-ST elevation (NSTEMI) myocardial infarction (principal); I44.0 Atrioventricular block, first degree; I44.4 Left anterior fascicular block; I49.1 Atrial premature depolarization; I45.10 Unspecified right bundle-branch block; I45.81 Long QT syndrome; I10 Essential (primary) hypertension; E78.5 Hyperlipidemia, unspecified; F10.10 Alcohol abuse, uncomplicated; Z86.79 Personal history of other diseases of the circulatory system; Z87.891 Personal history of nicotine dependence; Z79.52 Long term (current) use of systemic steroids; Z79.02 Long term (current) use of antithrombotics/antiplatelets; Z79.891 Long term (current) use of opiate analgesic; Z79.83 Long term (current) use of bisphosphonates; Z79.899 Other long term (current) drug therapy
CPT/HCPCS: 70450; 71045; 71275; 74177; 80047; 80048; 81001; 82550; 82553; 82803; 83605; 83735; 83880; 84484; 85025; 85610; 85730; 87040; 87486; 87581; 87633; 87798; 93005; 93041; 93971; 94760; 96365; 96366; 96375; 96376; 99285; J2405; Q9967

== ENCOUNTER 2023-05-12 02:22 | Emergency (ER) | payer MEDICARE, MEDICAID ==
[~2023-05-12] VITALS: Ht 172.7 cm; Wt 81.8 kg
[2023-05-12 02:50] LABS: HEMATOCRIT 26.5 % (42.0-52.0); HEMOGLOBIN 8.8 g/dl (13.5-17.5); MEAN CORPUSCULAR HEMOGLOBIN 36.2 pg (27.0-33.0); MEAN CORPUSCULAR HGB CONC 33.2 g/dl (32.0-36.5); MEAN CORPUSCULAR VOLUME 109.1 fl (80.0-96.0); NEUTROPHILS % 65.2 % (36.0-66.0); PLATELET COUNT, AUTOMATED 281 10^3/uL (150-450); RED BLOOD COUNT 2.43 10^6/uL (4.30-6.10); WHITE BLOOD COUNT 10.1 10^3/uL (4.0-10.0)
[2023-05-12 02:51] LABS: BASO % 0.4 % (0.0-1.0); EOS # 0.7 10^3/uL (0.0-0.5); EOS % 6.9 % (0.0-3.0); LYMPH # 1.8 10^3/uL (1.5-5.0); LYMPH % 17.9 % (24.0-44.0); MONO # 0.8 10^3/uL (0.0-0.8); MONO % 8.1 % (2.0-8.0); NEUTROPHILS # 6.6 10^3/uL (1.5-8.5)
[2023-05-12 03:02] LABS: INR 1.21; PROTHROMBIN TIME 14.9 SECONDS (12.5-14.5)
[2023-05-12 03:22] LABS: CK-MB VALUE MASS 3.3 NG/ML (<3.6); LIPASE 53 U/L (12-53)
[2023-05-12 03:23] LABS: RSV AMPLIFICATION NEGATIVE (NEGATIVE)
[2023-05-12 03:24] LABS: ALBUMIN 3.5 G/DL (3.2-5.2); ALKALINE PHOSPHATASE 64 U/L (46-116); ALT/SGPT 22 U/L (7.0-40); AST/SGOT 20 U/L (<34); BILIRUBIN,DIRECT 0.1 MG/DL (<0.4); BILIRUBIN,TOTAL 0.3 MG/DL (0.3-1.2); BLOOD UREA NITROGEN 30 MG/DL (9-23); CALCIUM LEVEL 8.4 MG/DL (8.3-10.6); CARBON DIOXIDE LEVEL 24 MMOL/L (20-31); CHLORIDE LEVEL 103 MMOL/L (98-107); CREATININE FOR GFR 0.96 MG/DL (0.70-1.30); GLOMERULAR FILTRATION RATE > 60.0 (>35); GLUCOSE, FASTING 96 MG/DL (74-106); POTASSIUM SERUM 4.2 MMOL/L (3.5-5.1); SODIUM LEVEL 135 MMOL/L (136-145)
[2023-05-12] MEDS ORDERED: MORPHINE 4 MG/ML 1ML VIAL IV ONE (03:25)
[2023-05-12 03:27] LABS: CPK CREATINE PHOSPHOKINASE 79 U/L (46-171); MB/CK RELATIVE INDEX 4.17 (< OR =4)
[2023-05-12 04:03] LABS: APPEARANCE, URINE CLEAR (CLEAR); BACTERIA, URINE AUTO NEGATIVE (NEGATIVE); BILIRUBIN, URINE AUTO NEGATIVE (NEGATIVE); BLOOD, URINE BLOOD NEGATIVE (NEGATIVE); COLOR, URINE YELLOW (YELLOW); GLUCOSE, URINE (UA) AUTO NEGATIVE (NEGATIVE); KETONE, URINE AUTO NEGATIVE (NEGATIVE); LEUKOCYTE ESTERASE, URINE AUTO NEGATIVE (NEGATIVE); NITRITE, URINE AUTO NEGATIVE (NEGATIVE); PROTEIN, URINE AUTO NEGATIVE (NEGATIVE); RBC, URINE AUTO 0 /HPF (0-3); SPECIFIC GRAVITY URINE AUTO 1.015 (1.002-1.035); SQUAMOUS EPITHELIAL CELL UR AU 0 /HPF (0-6); UROBILINOGEN, URINE AUTO 0.2 mg/dL (0.0-2.0); WBC, URINE AUTO 0 /HPF (0-3)
[2023-05-12] MEDS ORDERED: ISOVUE-370 76% 100ML VIAL As Ordered ONE (04:56)
[2023-05-12 05:54] LABS: CK-MB VALUE MASS < 1.0 NG/ML (<3.6); CPK CREATINE PHOSPHOKINASE 55 U/L (46-171); MB/CK RELATIVE INDEX 1.81 (< OR =4)
[2023-05-12 09:47] VITALS: BP 134/66; TEMP 97.8; O2SAT 100
== END 2023-05-12 09:51 | disposition home or self-care (01) ==
LOC: M ED 02:22
DX: M79.604 Pain in right leg (principal); M79.601 Pain in right arm; I11.0 Hypertensive heart disease with heart failure; K21.9 Gastro-esophageal reflux disease without esophagitis; E78.5 Hyperlipidemia, unspecified; J44.9 Chronic obstructive pulmonary disease, unspecified; Z79.899 Other long term (current) drug therapy
CPT/HCPCS: 36415; 71045; 71275; 72131; 74174; 80053; 81001; 82248; 82550; 82553; 83605; 83690; 84484; 85025; 85610; 87631; 93005; 93041; 94760; 96374; 99285; Q9967

== ENCOUNTER → 2023-06-19 | Outpatient (CLI) | payer MEDICARE, MEDICAID | LOC: M SOG 07:58 | PROVIDERS: ATTEND Orthopaedic Surgery | DX: M54.50 Low back pain, unspecified (principal) ==

== ENCOUNTER → 2023-09-03 | Outpatient (CLI) | payer MEDICARE, MEDICAID | LOC: M RAD 11:51 | PROVIDERS: ATTEND Podiatrist Foot & Ankle Surgery | DX: I73.89 Other specified peripheral vascular diseases (principal) ==

== ENCOUNTER 2023-11-19 19:03 | Inpatient (IN) | payer MEDICARE, MEDICAID ==
[~2023-11-19 19:03] MED LIST changes: -REFR1DRO8 OP; +REFR1DRO8 OU; -ROSU40TA4 PO; +ROSU40TA63 PO
[2023-11-19 20:45] VITALS: BP 115/63; TEMP 97.6; O2SAT 99
[2023-11-19] MEDS: METOPROLOL TART 25 MG TABLET PO SCH (21:00)
[2023-11-19] MEDS ORDERED: HEPARIN SOD (PORCINE) 5000UNITS/ML 1ML VIAL/SYRINGE SC SCH (21:15)
[2023-11-19] MEDS ORDERED: ONDANSETRON 4MG 2ML VIAL IV PRN (21:15)
[2023-11-19] MEDS: NS 1,000 ML IV SCH (21:51)
[2023-11-19 22:41] LABS: HEMATOCRIT 22.5 % (42.0-52.0); HEMOGLOBIN 7.5 g/dl (13.5-17.5); MEAN CORPUSCULAR HEMOGLOBIN 34.6 pg (27.0-33.0); MEAN CORPUSCULAR HGB CONC 33.3 g/dl (32.0-36.5); MEAN CORPUSCULAR VOLUME 103.7 fl (80.0-96.0); PLATELET COUNT, AUTOMATED 181 10^3/uL (150-450); RED BLOOD COUNT 2.17 10^6/uL (4.30-6.10); WHITE BLOOD COUNT 9.5 10^3/uL (4.0-10.0)
[2023-11-19 23:10] LABS: ALBUMIN 3.5 G/DL (3.2-5.2); ALKALINE PHOSPHATASE 59 U/L (46-116); ALT/SGPT 20 U/L (7.0-40); AST/SGOT 28 U/L (<34); BILIRUBIN,TOTAL 1.4 MG/DL (0.3-1.2); BLOOD UREA NITROGEN 21 MG/DL (9-23); CALCIUM LEVEL 8.4 MG/DL (8.3-10.6); CARBON DIOXIDE LEVEL 26 MMOL/L (20-31); CHLORIDE LEVEL 102 MMOL/L (98-107); CREATININE FOR GFR 1.12 MG/DL (0.70-1.30); GLOMERULAR FILTRATION RATE > 60.0 (>35); GLUCOSE, FASTING 92 MG/DL (74-106); POTASSIUM SERUM 4.5 MMOL/L (3.5-5.1); SODIUM LEVEL 135 MMOL/L (136-145); TOTAL PROTEIN 5.4 G/DL (5.7-8.2)
[2023-11-19 23:15] VITALS: BP 118/56; TEMP 97.9; O2SAT 93
[2023-11-20] VITALS (8 sets, daily range): BP systolic 123–160; BP diastolic 58–80; TEMP 97.3–98.4; O2SAT 94–97
[2023-11-20] MEDS ORDERED: ASPI-615 PO (01:03)
[2023-11-20] MEDS ORDERED: MELA3TAB29 PO (01:03)
[2023-11-20] MEDS ORDERED: METO25TA4 PO (01:03)
[2023-11-20] MEDS ORDERED: PANT-23 PO (01:03)
[2023-11-20] MEDS ORDERED: NITR4TASL SL (01:03)
[2023-11-20] MEDS ORDERED: HYDR-4571 PO (01:03)
[2023-11-20] MEDS ORDERED: CYAN-1 PO (01:03)
[2023-11-20] MEDS ORDERED: BRIL90TA PO (01:03)
[2023-11-20] MEDS ORDERED: GABA-284 PO (01:03)
[2023-11-20] MEDS ORDERED: FARX1TAB3 PO (01:03)
[2023-11-20] MEDS ORDERED: ALBU8.5H INH (01:03)
[2023-11-20] MEDS ORDERED: ASPI-596 PO (01:03)
[2023-11-20] MEDS ORDERED: ONDA4TAB6 PO (01:19)
[2023-11-20] MEDS ORDERED: HOME MED LIST COMPLETE! XX SCH (01:20)
[2023-11-20] MEDS ORDERED: ACETAMINOPHEN 500 MG TAB PO PRN (02:05)
[2023-11-20] MEDS: ATORVASTATIN 20 MG TAB PO SCH (03:18)
[2023-11-20] MEDS: NORCO, ANEXSIA 5/325MG TABLET (HYDROcodone/ACETAMINOPHEN) PO PRN (03:18)
[2023-11-20 05:43] LABS: HEMATOCRIT 27.7 % (42.0-52.0)
[2023-11-20 05:50] LABS: HEMOGLOBIN 9.5 g/dl (13.5-17.5)
[2023-11-20 06:08] LABS: BLOOD UREA NITROGEN 19 MG/DL (9-23); CALCIUM LEVEL 8.4 MG/DL (8.3-10.6); CARBON DIOXIDE LEVEL 26 MMOL/L (20-31); CHLORIDE LEVEL 104 MMOL/L (98-107); CREATININE FOR GFR 0.99 MG/DL (0.70-1.30); GLOMERULAR FILTRATION RATE > 60.0 (>35); GLUCOSE, FASTING 84 MG/DL (74-106); POTASSIUM SERUM 4.6 MMOL/L (3.5-5.1); SODIUM LEVEL 137 MMOL/L (136-145)
[2023-11-20] MEDS ORDERED: NITROGLYCERIN 0.4MG SUBL TABLET SL PRN (07:25)
[2023-11-20] MEDS ORDERED: ALBUTEROL 90 MCG/ACT 8GM HFA INHALER INH PRN (07:25)
[2023-11-20] MEDS ORDERED: EXCEDRIN MIGRAINE TABLET PO SCH (09:00)
[2023-11-20] MEDS: SUCRALFATE SUSP 1GM/10ML UD PO SCH (09:41)
[2023-11-20] MEDS: PANTOPRAZOLE 40MG VIAL IV SCH (09:41)
[2023-11-20] MEDS: ISOSORBIDE MON. (IMDUR) 60MG XR TAB PO SCH (09:41)
[2023-11-20] MEDS: ASPIRIN 81MG ENTERIC TABLET PO SCH (09:41)
[2023-11-20] MEDS: ASCORBIC ACID 500 MG TAB PO SCH (09:41)
[2023-11-20] MEDS: TICAGRELOR 90 MG TABLET (BRILINTA) PO SCH (09:42)
[2023-11-20] MEDS: DAPAGLIFLOZIN PROPANEDIOL 10MG TABLET (FARXIGA) PO SCH (09:42)
[2023-11-20] MEDS: GABAPENTIN 400MG CAP PO SCH (09:42)
[2023-11-20] MEDS ORDERED: EXCEDRIN MIGRAINE TABLET PO PRN (10:10)
[2023-11-20 12:01] LABS: HEMATOCRIT 27.4 % (42.0-52.0); HEMOGLOBIN 9.4 g/dl (13.5-17.5)
[2023-11-20] MEDS ORDERED: SUCR1TAB56 PO (12:16)
== END 2023-11-20 15:04 | disposition home or self-care (01) | DRG 812 ==
LOC: OBSVTOIN 21:11 → M ED INP 21:11 → M PCU 21:53
PROVIDERS: ADMIT Internal Medicine; ATTEND Internal Medicine
PROC: 30233N1 Transfusion of Nonautologous Red Blood Cells into Peripheral Vein, Percutaneous Approach (ICD-10-PCS; principal; 2023-11-20)
DX: D62 Acute posthemorrhagic anemia (principal); K92.2 Gastrointestinal hemorrhage, unspecified; I50.32 Chronic diastolic (congestive) heart failure; I11.0 Hypertensive heart disease with heart failure; I25.10 Atherosclerotic heart disease of native coronary artery without angina pectoris; I25.2 Old myocardial infarction; I25.5 Ischemic cardiomyopathy; K21.9 Gastro-esophageal reflux disease without esophagitis; E78.5 Hyperlipidemia, unspecified; T39.015A Adverse effect of aspirin, initial encounter; I69.320 Aphasia following cerebral infarction; I69.392 Facial weakness following cerebral infarction; G62.9 Polyneuropathy, unspecified; F32.A Depression, unspecified; Z85.46 Personal history of malignant neoplasm of prostate; Z92.3 Personal history of irradiation; J45.909 Unspecified asthma, uncomplicated; Z95.5 Presence of coronary angioplasty implant and graft; Z95.2 Presence of prosthetic heart valve; Z87.891 Personal history of nicotine dependence; Z79.899 Other long term (current) drug therapy; Z79.82 Long term (current) use of aspirin; Z79.02 Long term (current) use of antithrombotics/antiplatelets

== ENCOUNTER → 2023-12-13 | Outpatient (REF) | payer MEDICARE, MEDICAID ==
[~2023-12-13] MED LIST changes: +ALBU8.5H INH; +ASPI-596 PO; +ASPI-615 PO; +BRIL90TA PO; +CYAN-1 PO; +FARX1TAB3 PO; +GABA-284 PO; +HYDR-4571 PO; +MELA3TAB29 PO; +METO25TA4 PO; +NITR4TASL SL; +ONDA-282 PO; +PANT-23 PO; +SUCR1TAB56 PO
[2023-12-13 18:05] LABS: BASO # 0.1 10^3/uL (0.0-0.2); BASO % 0.6 % (0.0-1.0); EOS # 0.3 10^3/uL (0.0-0.5); HEMATOCRIT 36.3 % (42.0-52.0); HEMOGLOBIN 11.6 g/dl (13.5-17.5); MEAN CORPUSCULAR HEMOGLOBIN 33.4 pg (27.0-33.0); MEAN CORPUSCULAR VOLUME 104.6 fl (80.0-96.0); MONO # 0.9 10^3/uL (0.0-0.8); MONO % 8.4 % (2.0-8.0); NEUTROPHILS # 7.5 10^3/uL (1.5-8.5); NEUTROPHILS % 69.5 % (36.0-66.0); PLATELET COUNT, AUTOMATED 206 10^3/uL (150-450); RED BLOOD COUNT 3.47 10^6/uL (4.30-6.10); WHITE BLOOD COUNT 10.8 10^3/uL (4.0-10.0)
[2023-12-13 18:08] LABS: ALBUMIN 4.1 G/DL (3.2-5.2); ALKALINE PHOSPHATASE 84 U/L (46-116); ALT/SGPT 16 U/L (7.0-40); AST/SGOT 12 U/L (<34); BILIRUBIN,TOTAL 0.7 MG/DL (0.3-1.2); BLOOD UREA NITROGEN 18 MG/DL (9-23); CALCIUM LEVEL 9.5 MG/DL (8.3-10.6); CARBON DIOXIDE LEVEL 27 MMOL/L (20-31); CHLORIDE LEVEL 101 MMOL/L (98-107); CREATININE FOR GFR 0.95 MG/DL (0.70-1.30); GLOMERULAR FILTRATION RATE > 60.0 (>35); GLUCOSE, FASTING 94 MG/DL (74-106); POTASSIUM SERUM 4.3 MMOL/L (3.5-5.1); SODIUM LEVEL 136 MMOL/L (136-145); TOTAL PROTEIN 6.4 G/DL (5.7-8.2)
== END ==
LOC: M SFHCLERA 08:06
PROVIDERS: ATTEND Physician Assistant
DX: I50.9 Heart failure, unspecified (principal); R39.9 Unspecified symptoms and signs involving the genitourinary system

== ENCOUNTER 2024-01-25 02:33 | Emergency (ER) | payer MEDICARE, MEDICAID ==
[~2024-01-25] VITALS: Ht 157.5 cm; Wt 66.0 kg
[2024-01-25 02:41] VITALS: TEMP 98.4
[2024-01-25 04:55] LABS: BASO # 0.1 10^3/uL (0.0-0.2); BASO % 0.7 % (0.0-1.0); EOS # 0.3 10^3/uL (0.0-0.5); HEMATOCRIT 34.4 % (42.0-52.0); HEMOGLOBIN 11.2 g/dl (13.5-17.5); LYMPH # 1.4 10^3/uL (1.5-5.0); LYMPH % 16.9 % (24.0-44.0); MEAN CORPUSCULAR HEMOGLOBIN 34.4 pg (27.0-33.0); MEAN CORPUSCULAR HGB CONC 32.6 g/dl (32.0-36.5); MEAN CORPUSCULAR VOLUME 105.5 fl (80.0-96.0); MONO # 0.8 10^3/uL (0.0-0.8); MONO % 9.4 % (2.0-8.0); NEUTROPHILS # 5.7 10^3/uL (1.5-8.5); NEUTROPHILS % 68.3 % (36.0-66.0); PLATELET COUNT, AUTOMATED 183 10^3/uL (150-450); RED BLOOD COUNT 3.26 10^6/uL (4.30-6.10); WHITE BLOOD COUNT 8.3 10^3/uL (4.0-10.0)
[2024-01-25] MEDS: NAPROXEN 250 MG TAB PO ONE (05:10)
[2024-01-25 05:23] LABS: BLOOD UREA NITROGEN 9 MG/DL (9-23); CARBON DIOXIDE LEVEL 30 MMOL/L (20-31); CHLORIDE LEVEL 106 MMOL/L (98-107); CREATININE FOR GFR 0.79 MG/DL (0.70-1.30); GLOMERULAR FILTRATION RATE > 60.0 (>35); GLUCOSE, FASTING 97 MG/DL (74-106); POTASSIUM SERUM 3.7 MMOL/L (3.5-5.1); SODIUM LEVEL 141 MMOL/L (136-145)
[2024-01-25 06:00] VITALS: BP 175/83
[2024-01-25 06:18] VITALS: O2SAT 97
== END 2024-01-25 07:06 | disposition home or self-care (01) ==
LOC: M ED 02:33 → EDBD 02:33 → M ED 07:06
DX: M79.602 Pain in left arm (principal); I44.0 Atrioventricular block, first degree; I45.81 Long QT syndrome; I45.10 Unspecified right bundle-branch block; I25.2 Old myocardial infarction; I25.119 Atherosclerotic heart disease of native coronary artery with unspecified angina pectoris; I50.22 Chronic systolic (congestive) heart failure; I11.0 Hypertensive heart disease with heart failure; Z85.46 Personal history of malignant neoplasm of prostate; Z79.1 Long term (current) use of non-steroidal anti-inflammatories (NSAID); Z79.51 Long term (current) use of inhaled steroids; Z79.899 Other long term (current) drug therapy

== ENCOUNTER → 2024-02-24 | Outpatient (CLI) | payer MEDICARE, MEDICAID ==
[~2024-02-24] MED LIST changes: -ROSU40TA63 PO; +ROSU40TA81 PO
== END ==
LOC: M PAIN 13:00
PROVIDERS: ATTEND Nurse Practitioner Family
DX: M79.10 Myalgia, unspecified site (principal); G89.29 Other chronic pain; I10 Essential (primary) hypertension; E78.5 Hyperlipidemia, unspecified; M54.50 Low back pain, unspecified; Z85.46 Personal history of malignant neoplasm of prostate; Z79.891 Long term (current) use of opiate analgesic; Z79.899 Other long term (current) drug therapy

== ENCOUNTER → 2024-04-09 | Outpatient (REF) ==
[~2024-04-09] MED LIST changes: -ROSU20TA61 PO; +ROSU20TA86 PO
[2024-04-09 10:15] LABS: BASO % 0.4 % (0.0-1.0); EOS # 0.4 10^3/uL (0.0-0.5); HEMATOCRIT 28.3 % (42.0-52.0); HEMOGLOBIN 9.2 g/dl (13.5-17.5); LYMPH # 1.4 10^3/uL (1.5-5.0); LYMPH % 17.6 % (24.0-44.0); MEAN CORPUSCULAR HEMOGLOBIN 34.2 pg (27.0-33.0); MEAN CORPUSCULAR HGB CONC 32.5 g/dl (32.0-36.5); MEAN CORPUSCULAR VOLUME 105.2 fl (80.0-96.0); MONO # 0.7 10^3/uL (0.0-0.8); MONO % 8.8 % (2.0-8.0); NEUTROPHILS # 5.3 10^3/uL (1.5-8.5); NEUTROPHILS % 67.1 % (36.0-66.0); PLATELET COUNT, AUTOMATED 191 10^3/uL (150-450); RED BLOOD COUNT 2.69 10^6/uL (4.30-6.10); WHITE BLOOD COUNT 7.8 10^3/uL (4.0-10.0)
[2024-04-09 10:44] LABS: ALBUMIN 3.2 G/DL (3.2-5.2); ALKALINE PHOSPHATASE 61 U/L (46-116); ALT/SGPT 17 U/L (7.0-40); AST/SGOT 11 U/L (<34); BILIRUBIN,TOTAL 0.4 MG/DL (0.3-1.2); BLOOD UREA NITROGEN 26 MG/DL (9-23); CARBON DIOXIDE LEVEL 28 MMOL/L (20-31); CHLORIDE LEVEL 107 MMOL/L (98-107); CHOLESTEROL LEVEL 103 MG/DL (<200); CHOLESTEROL RISK RATIO 2.82 (<5); CREATININE FOR GFR 0.74 MG/DL (0.70-1.30); GLOMERULAR FILTRATION RATE > 60.0 (>35); GLUCOSE, FASTING 97 MG/DL (74-106); HDL CHOLESTEROL 36.4 MG/DL (>40); LDL CHOLESTEROL 44.6 MG/DL (<100); NON-HDL-C 66.6 MG/DL; POTASSIUM SERUM 4.3 MMOL/L (3.5-5.1); SODIUM LEVEL 141 MMOL/L (136-145); TOTAL PROTEIN 5.7 G/DL (5.7-8.2); TRIGLYCERIDES LEVEL 110 MG/DL (<150)
[2024-04-09 10:45] LABS: VITAMIN B12 LEVEL 1540 PG/ML (211-911)
== END ==
LOC: SKLAB3 08:30
PROVIDERS: ATTEND Internal Medicine
DX: I11.0 Hypertensive heart disease with heart failure (principal); I50.9 Heart failure, unspecified; E78.5 Hyperlipidemia, unspecified; E55.9 Vitamin D deficiency, unspecified; E53.8 Deficiency of other specified B group vitamins; R06.02 Shortness of breath

== ENCOUNTER → 2024-04-14 | Outpatient (CLI) | payer MEDICARE, MEDICAID ==
[~2024-04-14] MED LIST changes: +TRIAMCINOLONE ACETONIDE SUSP 40MG/ML 1ML VIAL As Ordered ONE
== END ==
LOC: M PAIN 08:30
PROVIDERS: ATTEND Anesthesiology
DX: M79.18 Myalgia, other site (principal); G89.29 Other chronic pain; I10 Essential (primary) hypertension; E78.5 Hyperlipidemia, unspecified; R32 Unspecified urinary incontinence; J44.9 Chronic obstructive pulmonary disease, unspecified; I50.9 Heart failure, unspecified; N40.1 Benign prostatic hyperplasia with lower urinary tract symptoms; I25.10 Atherosclerotic heart disease of native coronary artery without angina pectoris; K21.9 Gastro-esophageal reflux disease without esophagitis; I69.328 Other speech and language deficits following cerebral infarction; Z79.02 Long term (current) use of antithrombotics/antiplatelets; Z79.82 Long term (current) use of aspirin; Z79.891 Long term (current) use of opiate analgesic; Z79.899 Other long term (current) drug therapy
CPT/HCPCS: 20552; J0665; J3301

== ENCOUNTER → 2024-05-29 | Outpatient (CLI) | payer MEDICARE, MEDICAID ==
[~2024-05-29] MED LIST changes: -TRIAMCINOLONE ACETONIDE SUSP 40MG/ML 1ML VIAL As Ordered ONE
== END ==
LOC: M PAIN 09:00
PROVIDERS: ATTEND Nurse Practitioner Family
DX: M79.18 Myalgia, other site (principal); G89.29 Other chronic pain; I11.0 Hypertensive heart disease with heart failure; E78.5 Hyperlipidemia, unspecified; M54.50 Low back pain, unspecified; R32 Unspecified urinary incontinence; J44.9 Chronic obstructive pulmonary disease, unspecified; I50.9 Heart failure, unspecified; N40.1 Benign prostatic hyperplasia with lower urinary tract symptoms; I25.10 Atherosclerotic heart disease of native coronary artery without angina pectoris; K21.9 Gastro-esophageal reflux disease without esophagitis; F17.290 Nicotine dependence, other tobacco product, uncomplicated; Z86.73 Personal history of transient ischemic attack (TIA), and cerebral infarction without residual deficits; Z79.02 Long term (current) use of antithrombotics/antiplatelets; Z79.891 Long term (current) use of opiate analgesic; Z79.899 Other long term (current) drug therapy; K92.2 Gastrointestinal hemorrhage, unspecified
CPT/HCPCS: 36415; 80053; 83735; 85027; G0463

== ENCOUNTER → 2024-05-29 | Outpatient (REF) | payer MEDICARE, MEDICAID ==
[2024-05-29 11:24] LABS: HEMATOCRIT 36.6 % (42.0-52.0); HEMOGLOBIN 11.9 g/dl (13.5-17.5); MEAN CORPUSCULAR HEMOGLOBIN 34.4 pg (27.0-33.0); MEAN CORPUSCULAR HGB CONC 32.5 g/dl (32.0-36.5); MEAN CORPUSCULAR VOLUME 105.8 fl (80.0-96.0); PLATELET COUNT, AUTOMATED 238 10^3/uL (150-450); RED BLOOD COUNT 3.46 10^6/uL (4.30-6.10); WHITE BLOOD COUNT 11.8 10^3/uL (4.0-10.0)
[2024-05-29 11:52] LABS: ALBUMIN 3.8 G/DL (3.2-5.2); ALKALINE PHOSPHATASE 61 U/L (40-129); ALT/SGPT 23 U/L (7.0-40); AST/SGOT 15 U/L (<34); BILIRUBIN,TOTAL 0.5 MG/DL (0.3-1.2); BLOOD UREA NITROGEN 55 MG/DL (9-23); CALCIUM LEVEL 9.7 MG/DL (8.3-10.6); CARBON DIOXIDE LEVEL 27 MMOL/L (20-31); CHLORIDE LEVEL 106 MMOL/L (98-107); CREATININE FOR GFR 0.92 MG/DL (0.70-1.30); GLOMERULAR FILTRATION RATE > 60.0 (>35); GLUCOSE, FASTING 88 MG/DL (74-106); MAGNESIUM LEVEL 2.4 MG/DL (1.8-2.4); POTASSIUM SERUM 4.7 MMOL/L (3.5-5.1); SODIUM LEVEL 140 MMOL/L (136-145); TOTAL PROTEIN 6.7 G/DL (5.7-8.2)
== END ==
LOC: SKLAB3 10:44
PROVIDERS: ATTEND Internal Medicine
DX: K92.2 Gastrointestinal hemorrhage, unspecified (principal)

== ENCOUNTER → 2024-06-09 | Outpatient (REF) | payer MEDICARE, MEDICAID | LOC: SKLAB3 12:33 | PROVIDERS: ATTEND Internal Medicine | DX: R06.2 Wheezing (principal); K44.9 Diaphragmatic hernia without obstruction or gangrene; Z95.4 Presence of other heart-valve replacement ==

== ENCOUNTER → 2024-07-14 | Outpatient (REF) | payer MEDICARE, MEDICAID ==
[~2024-07-14] MED LIST changes: +OMEP-611 PO; -OMEP20TA2 PO
[2024-07-14 13:35] LABS: HEMATOCRIT 37.2 % (42.0-52.0); HEMOGLOBIN 11.9 g/dl (13.5-17.5); MEAN CORPUSCULAR HEMOGLOBIN 33.4 pg (27.0-33.0); MEAN CORPUSCULAR VOLUME 104.5 fl (80.0-96.0); PLATELET COUNT, AUTOMATED 215 10^3/uL (150-450); RED BLOOD COUNT 3.56 10^6/uL (4.30-6.10); WHITE BLOOD COUNT 11.4 10^3/uL (4.0-10.0)
[2024-07-14 13:58] LABS: CK-MB VALUE MASS 4.1 NG/ML (<3.6)
[2024-07-14 14:01] LABS: ALBUMIN 3.7 G/DL (3.2-5.2); ALKALINE PHOSPHATASE 61 U/L (40-129); ALT/SGPT 26 U/L (7.0-40); AST/SGOT 21 U/L (<34); BILIRUBIN,TOTAL 0.5 MG/DL (0.3-1.2); BLOOD UREA NITROGEN 38 MG/DL (9-23); CALCIUM LEVEL 9.3 MG/DL (8.3-10.6); CARBON DIOXIDE LEVEL 26 MMOL/L (20-31); CHLORIDE LEVEL 106 MMOL/L (98-107); CPK CREATINE PHOSPHOKINASE 176 U/L (46-171); CREATININE FOR GFR 1.02 MG/DL (0.70-1.30); GLOMERULAR FILTRATION RATE > 60.0 (>35); GLUCOSE, FASTING 111 MG/DL (74-106); MAGNESIUM LEVEL 2.3 MG/DL (1.8-2.4); MB/CK RELATIVE INDEX 2.32 (< OR =4); SODIUM LEVEL 138 MMOL/L (136-145); TOTAL PROTEIN 6.5 G/DL (5.7-8.2)
== END ==
LOC: SKLAB3 12:35
PROVIDERS: ATTEND Internal Medicine
DX: R07.9 Chest pain, unspecified (principal); I44.0 Atrioventricular block, first degree; I45.10 Unspecified right bundle-branch block

== ENCOUNTER → 2024-07-15 | Outpatient (REF) | payer MEDICARE, MEDICAID | LOC: SKLAB3 08:47 | PROVIDERS: ATTEND Internal Medicine | DX: R07.9 Chest pain, unspecified (principal); I70.0 Atherosclerosis of aorta; Z97.8 Presence of other specified devices ==

== ENCOUNTER → 2024-07-16 | Outpatient (REF) | payer MEDICARE, MEDICAID | LOC: SKLAB3 14:00 | PROVIDERS: ATTEND Internal Medicine | DX: J06.9 Acute upper respiratory infection, unspecified (principal) ==

== ENCOUNTER → 2024-07-30 | Outpatient (CLI) | payer MEDICARE, MEDICAID | LOC: M PAIN 09:15 | PROVIDERS: ATTEND Nurse Practitioner Family | DX: M79.18 Myalgia, other site (principal); G89.29 Other chronic pain; I11.0 Hypertensive heart disease with heart failure; E78.5 Hyperlipidemia, unspecified; J44.9 Chronic obstructive pulmonary disease, unspecified; I50.9 Heart failure, unspecified; K21.9 Gastro-esophageal reflux disease without esophagitis; N40.0 Benign prostatic hyperplasia without lower urinary tract symptoms; Z79.02 Long term (current) use of antithrombotics/antiplatelets; Z79.82 Long term (current) use of aspirin; Z79.891 Long term (current) use of opiate analgesic; Z79.899 Other long term (current) drug therapy ==

== ENCOUNTER → 2024-07-31 | Outpatient (REF) | payer MEDICARE, MEDICAID ==
[~2024-07-31] MED LIST changes: +ANOR1AER IN; +CLOP75TA99 PO; +CYAN1000VL IM; +FLOM0.4C39 PO; +IRON65TA2 PO; +LACT10SO94 PO; +LACT20EL PO; +SENN-23 PO; +VITA1CAP25 PO
== END ==
LOC: SKLAB3 13:34
PROVIDERS: ATTEND Internal Medicine
DX: R06.02 Shortness of breath (principal); Z98.890 Other specified postprocedural states

== ENCOUNTER → 2024-07-31 | Outpatient (REF) | payer MEDICARE, MEDICAID | LOC: SKLAB3 13:43 | PROVIDERS: ATTEND Internal Medicine | DX: R06.02 Shortness of breath (principal); Z98.890 Other specified postprocedural states ==

== ENCOUNTER → 2024-08-07 | Outpatient (REF) | payer MEDICARE, MEDICAID ==
[2024-08-07 10:57] LABS: MEAN CORPUSCULAR HEMOGLOBIN 34.2 pg (27.0-33.0); MEAN CORPUSCULAR HGB CONC 33.3 g/dl (32.0-36.5); MEAN CORPUSCULAR VOLUME 102.6 fl (80.0-96.0); PLATELET COUNT, AUTOMATED 232 10^3/uL (150-450); WHITE BLOOD COUNT 17.1 10^3/uL (4.0-10.0)
[2024-08-07 11:38] LABS: ALBUMIN 3.4 G/DL (3.2-5.2); ALKALINE PHOSPHATASE 57 U/L (40-129); ALT/SGPT 28 U/L (7.0-40); AST/SGOT 18 U/L (<34); BILIRUBIN,TOTAL 0.7 MG/DL (0.3-1.2); BLOOD UREA NITROGEN 45 MG/DL (9-23); CALCIUM LEVEL 8.5 MG/DL (8.3-10.6); CARBON DIOXIDE LEVEL 22 MMOL/L (20-31); CHLORIDE LEVEL 107 MMOL/L (98-107); CREATININE FOR GFR 0.97 MG/DL (0.70-1.30); GLOMERULAR FILTRATION RATE > 60.0 (>35); GLUCOSE, FASTING 108 MG/DL (74-106); POTASSIUM SERUM 4.1 MMOL/L (3.5-5.1); SODIUM LEVEL 139 MMOL/L (136-145); TOTAL PROTEIN 5.8 G/DL (5.7-8.2)
== END ==
LOC: SKLAB3 07:00
PROVIDERS: ATTEND Internal Medicine
DX: I10 Essential (primary) hypertension (principal)

== ENCOUNTER → 2024-08-14 | Outpatient (REF) | payer MEDICARE, MEDICAID ==
[2024-08-14 08:16] LABS: HEMOGLOBIN 12.8 g/dl (13.5-17.5); MEAN CORPUSCULAR HEMOGLOBIN 33.7 pg (27.0-33.0); MEAN CORPUSCULAR HGB CONC 32.8 g/dl (32.0-36.5); MEAN CORPUSCULAR VOLUME 102.6 fl (80.0-96.0); PLATELET COUNT, AUTOMATED 165 10^3/uL (150-450); WHITE BLOOD COUNT 12.2 10^3/uL (4.0-10.0)
== END ==
LOC: SKLAB3 07:26
PROVIDERS: ATTEND Internal Medicine
DX: D72.829 Elevated white blood cell count, unspecified (principal)

== ENCOUNTER 2024-08-17 09:50 | Day surgery (SDC) | payer MEDICARE, MEDICAID ==
[~2024-08-17] VITALS: Ht 203.2 cm; Wt 84.5 kg
[~2024-08-17 09:50] MED LIST changes: +LIDOCAINE 2% 100MG/5ML SDV (FOR ANES.) As Ordered ONE; +propofoL 500 MG/50 ML VIAL As Ordered ONE
[2024-08-17] MEDS ORDERED: ePHEDrine SULFATE 25 MG/5 ML(5MG/ML) SYRINGE As Ordered ONE (11:39)
[2024-08-17] MEDS ORDERED: propofoL 200 MG/20 ML VIAL As Ordered ONE (12:05)
[2024-08-17 12:14] VITALS: TEMP 97.4
[2024-08-17 12:40] VITALS: BP 118/66; O2SAT 96
== END 2024-08-17 12:46 | disposition home or self-care (01) ==
LOC: M OPP 09:50
PROVIDERS: ATTEND Internal Medicine Gastroenterology
DX: D12.0 Benign neoplasm of cecum (principal); K57.30 Diverticulosis of large intestine without perforation or abscess without bleeding; K64.8 Other hemorrhoids; R19.4 Change in bowel habit; D64.9 Anemia, unspecified; Z79.02 Long term (current) use of antithrombotics/antiplatelets; K44.9 Diaphragmatic hernia without obstruction or gangrene; K22.89 Other specified disease of esophagus; K92.1 Melena; Z86.73 Personal history of transient ischemic attack (TIA), and cerebral infarction without residual deficits; Z79.51 Long term (current) use of inhaled steroids; Z79.891 Long term (current) use of opiate analgesic; Z79.899 Other long term (current) drug therapy; J43.9 Emphysema, unspecified; Z95.1 Presence of aortocoronary bypass graft; Z95.2 Presence of prosthetic heart valve

== ENCOUNTER → 2024-09-03 | Outpatient (CLI) | payer MEDICARE, MEDICAID ==
[~2024-09-03] MED LIST changes: -LIDOCAINE 2% 100MG/5ML SDV (FOR ANES.) As Ordered ONE; -propofoL 500 MG/50 ML VIAL As Ordered ONE
== END ==
LOC: M RAD 07:51
PROVIDERS: ATTEND Pain Medicine Interventional Pain Medicine
DX: M54.16 Radiculopathy, lumbar region (principal)

== ENCOUNTER → 2024-09-18 | Outpatient (REF) | payer MEDICARE, MEDICAID | LOC: SKLAB3 10:07 | PROVIDERS: ATTEND Internal Medicine | DX: R06.02 Shortness of breath (principal); R06.2 Wheezing; K44.9 Diaphragmatic hernia without obstruction or gangrene; Z95.1 Presence of aortocoronary bypass graft; Z95.2 Presence of prosthetic heart valve ==

== ENCOUNTER → 2024-09-23 | Outpatient (REF) | payer MEDICARE, MEDICAID ==
[2024-09-23 07:37] LABS: BLOOD UREA NITROGEN 27 MG/DL (9-23); CREATININE FOR GFR 0.91 MG/DL (0.70-1.30); GLOMERULAR FILTRATION RATE > 60.0 (>35)
== END ==
LOC: SKLAB3 07:00
PROVIDERS: ATTEND Internal Medicine
DX: Z01.818 Encounter for other preprocedural examination (principal)

== ENCOUNTER → 2024-09-29 | Outpatient (CLI) | payer MEDICARE, MEDICAID ==
[~2024-09-29] MED LIST changes: +PROHANCE 279.3MG/ML 15ML VIAL As Ordered ONE
== END ==
LOC: M RAD 12:31
PROVIDERS: ATTEND Pain Medicine Interventional Pain Medicine
DX: M54.16 Radiculopathy, lumbar region (principal)
CPT/HCPCS: 72158; A9576

== ENCOUNTER → 2024-10-27 | Outpatient (REF) | payer MEDICARE, MEDICAID ==
[~2024-10-27] MED LIST changes: -FLOM0.4C39 PO; -PROHANCE 279.3MG/ML 15ML VIAL As Ordered ONE; +TAMS-18 PO
[2024-10-27 07:48] LABS: HEMATOCRIT 37.9 % (42.0-52.0); HEMOGLOBIN 12.2 g/dl (13.5-17.5); MEAN CORPUSCULAR HEMOGLOBIN 34.3 pg (27.0-33.0); MEAN CORPUSCULAR HGB CONC 32.2 g/dl (32.0-36.5); MEAN CORPUSCULAR VOLUME 106.5 fl (80.0-96.0); PLATELET COUNT, AUTOMATED 232 10^3/uL (150-450); RED BLOOD COUNT 3.56 10^6/uL (4.30-6.10); WHITE BLOOD COUNT 11.5 10^3/uL (4.0-10.0)
[2024-10-27 08:38] LABS: BILIRUBIN,TOTAL 0.8 MG/DL (0.3-1.2); CALCIUM LEVEL 9.2 MG/DL (8.3-10.6); CHOLESTEROL RISK RATIO 2.88 (<5); CREATININE FOR GFR 1.07 MG/DL (0.70-1.30); HDL CHOLESTEROL 35.4 MG/DL (>40); LDL CHOLESTEROL 42.6 MG/DL (<100); NON-HDL-C 66.6 MG/DL; POTASSIUM SERUM 4.5 MMOL/L (3.5-5.1); TOTAL PROTEIN 6.6 G/DL (5.7-8.2)
== END ==
LOC: SKLAB3 07:00
PROVIDERS: ATTEND Internal Medicine
DX: E53.8 Deficiency of other specified B group vitamins (principal); I10 Essential (primary) hypertension

== ENCOUNTER → 2025-01-12 | Outpatient (REF) | payer MEDICARE, MEDICAID | LOC: M SFHCDERM 16:58 | PROVIDERS: ATTEND Nurse Practitioner Family | DX: T14.8XXA Other injury of unspecified body region, initial encounter (principal) ==

== ENCOUNTER → 2025-01-14 | Outpatient (REF) | payer MEDICARE, MEDICAID ==
[2025-01-14 07:52] LABS: PLATELET COUNT, AUTOMATED 260 10^3/uL (150-450)
[2025-01-14 08:19] LABS: CALCIUM LEVEL 9.1 MG/DL (8.3-10.6); CARBON DIOXIDE LEVEL 27.0 MMOL/L (20-31); CHLORIDE LEVEL 104.0 MMOL/L (98-107); CREATININE FOR GFR 1.02 MG/DL (0.70-1.30); GLOMERULAR FILTRATION RATE 71.6 (>35); POTASSIUM SERUM 4.0 MMOL/L (3.5-5.1); SODIUM LEVEL 141.0 MMOL/L (136-145)
== END ==
LOC: SKLAB3 07:00
PROVIDERS: ATTEND Internal Medicine
DX: N18.9 Chronic kidney disease, unspecified (principal)

== ENCOUNTER → 2025-01-21 | Outpatient (REF) | payer MEDICARE, MEDICAID ==
[2025-01-21 07:51] LABS: PLATELET COUNT, AUTOMATED 217 10^3/uL (150-450)
[2025-01-21 08:29] LABS: CALCIUM LEVEL 8.6 MG/DL (8.3-10.6); CARBON DIOXIDE LEVEL 24.0 MMOL/L (20-31); CHLORIDE LEVEL 102.0 MMOL/L (98-107); CREATININE FOR GFR 1.36 MG/DL (0.70-1.30); GLOMERULAR FILTRATION RATE 50.7 (>35); POTASSIUM SERUM 4.1 MMOL/L (3.5-5.1); SODIUM LEVEL 139.0 MMOL/L (136-145)
== END ==
LOC: SKLAB3 07:00
PROVIDERS: ATTEND Internal Medicine
DX: N18.9 Chronic kidney disease, unspecified (principal)

== ENCOUNTER → 2025-01-26 | Outpatient (REF) | payer MEDICARE, MEDICAID ==
[2025-01-26 08:29] LABS: PLATELET COUNT, AUTOMATED 187 10^3/uL (150-450)
[2025-01-26 08:50] LABS: ALT/SGPT 20.0 U/L (7.0-40); AST/SGOT 24.0 U/L (<34); CALCIUM LEVEL 8.2 MG/DL (8.3-10.6); CARBON DIOXIDE LEVEL 26.0 MMOL/L (20-31); CHLORIDE LEVEL 104.0 MMOL/L (98-107); CREATININE FOR GFR 1.05 MG/DL (0.70-1.30); GLOMERULAR FILTRATION RATE 69.1 (>35); POTASSIUM SERUM 3.9 MMOL/L (3.5-5.1); SODIUM LEVEL 142.0 MMOL/L (136-145)
== END ==
LOC: SKLAB3 07:00
PROVIDERS: ATTEND Internal Medicine
DX: I10 Essential (primary) hypertension (principal)

== ENCOUNTER → 2025-01-29 | Outpatient (REF) | payer MEDICARE, MEDICAID ==
[2025-01-29 10:59] LABS: PLATELET COUNT, AUTOMATED 159 10^3/uL (150-450)
[2025-01-29 11:22] LABS: CALCIUM LEVEL 8.0 MG/DL (8.3-10.6); CARBON DIOXIDE LEVEL 20.0 MMOL/L (20-31); CHLORIDE LEVEL 106.0 MMOL/L (98-107); CREATININE FOR GFR 1.45 MG/DL (0.70-1.30); GLOMERULAR FILTRATION RATE 46.9 (>35); POTASSIUM SERUM 4.0 MMOL/L (3.5-5.1); SODIUM LEVEL 143.0 MMOL/L (136-145)
== END ==
LOC: SKLAB3 09:51
PROVIDERS: ATTEND Nurse Practitioner
DX: R50.9 Fever, unspecified (principal)

== ENCOUNTER → 2025-01-29 | Outpatient (REF) | payer MEDICARE, MEDICAID | LOC: SKLAB3 10:00 | PROVIDERS: ATTEND Internal Medicine | DX: Z53.8 Procedure and treatment not carried out for other reasons (principal) ==

== ENCOUNTER → 2025-01-30 | Outpatient (CLI) | payer MEDICARE, MEDICAID ==
[~2025-01-30] MED LIST changes: +ACET1TAB55 PO; +ASPI81CH33 PO; +BACTDSTA PO; +CARB15DR33 OU; +CLIN-250 PO; +ERGO500029 PO; +FURO40TA2 PO; +IPRA0.00 INH; +LINE1TAB6 PO; +PROB250C PO; +SENN18TA PO
[2025-01-30 18:03] LABS: PLATELET COUNT, AUTOMATED 137 10^3/uL (150-450)
== END ==
LOC: SKLAB3 10:04
PROVIDERS: ATTEND Internal Medicine
DX: R06.02 Shortness of breath (principal); R50.9 Fever, unspecified

== ENCOUNTER → 2025-01-31 | Outpatient (REF) | payer MEDICARE, MEDICAID ==
[~2025-01-31] MED LIST changes: -ACET1TAB55 PO; -ASPI81CH33 PO; -BACTDSTA PO; -CARB15DR33 OU; -CLIN-250 PO; -ERGO500029 PO; -FURO40TA2 PO; -IPRA0.00 INH; -LINE1TAB6 PO; -PROB250C PO; -SENN18TA PO
== END ==
LOC: SKLAB3 13:56
PROVIDERS: ATTEND Internal Medicine
DX: R06.02 Shortness of breath (principal); Z98.890 Other specified postprocedural states

== ENCOUNTER → 2025-02-01 | Outpatient (CLI) | payer MEDICARE, MEDICAID | LOC: M RAD 11:28 | PROVIDERS: ATTEND Nurse Practitioner | DX: R60.9 Edema, unspecified (principal) ==

== ENCOUNTER 2025-02-05 13:22 | Inpatient (IN) | payer MEDICARE, MEDICAID ==
[~2025-02-05] VITALS: Ht 172.7 cm; Wt 83.5 kg
[2025-02-05 14:00] LABS: BASO # 0.1 10^3/uL (0.0-0.2); BASO % 0.4 % (0.0-1.0); EOS # 0.3 10^3/uL (0.0-0.5); EOS % 1.6 % (0.0-3.0); LYMPH # 1.0 10^3/uL (1.5-5.0); LYMPH % 5.2 % (24.0-44.0); MONO # 1.0 10^3/uL (0.0-0.8); MONO % 5.0 % (2.0-8.0); NEUTROPHILS # 16.8 10^3/uL (1.5-8.5); NEUTROPHILS % 86.2 % (36.0-66.0); PLATELET COUNT, AUTOMATED 281 10^3/uL (150-450)
[2025-02-05 14:08] LABS: ERYTHROCYTE SEDIMENTATION RATE 85 mm/hr (0-20)
[2025-02-05] MEDS: IPRATROPIUM 0.5 MG/ALBUTEROL 2.5 MG INH SOL UD 3 ML NEB ONE (14:25)
[2025-02-05 14:28] LABS: INR 1.08
[2025-02-05 14:32] LABS: ALT/SGPT 26.0 U/L (7.0-40); AST/SGOT 27.0 U/L (<34); C REACTIVE PROTEIN QUANTITATIV 3.03 MG/DL (<1.0); CALCIUM LEVEL 8.6 MG/DL (8.3-10.6); CARBON DIOXIDE LEVEL 26.0 MMOL/L (20-31); CHLORIDE LEVEL 102.0 MMOL/L (98-107); CREATININE FOR GFR 1.29 MG/DL (0.70-1.30); GLOMERULAR FILTRATION RATE 54.0 (>35); POTASSIUM SERUM 4.6 MMOL/L (3.5-5.1); SODIUM LEVEL 139.0 MMOL/L (136-145)
[2025-02-05] MEDS: VANCOMYCIN HCL 1,750 MG, VIAL MATE ADAPTER 1 EACH in NS 500 ML IV ONE (15:34)
[2025-02-05] MEDS: MORPHINE 2 MG/ML 1 ML VIAL IV ONE (15:34)
[2025-02-05] MEDS: MORPHINE 2 MG/ML 1 ML VIAL IV PRN ×2 (17:54→21:19)
[2025-02-05] MEDS ORDERED: VANCOMYCIN HCL 1,000 MG, VIAL MATE ADAPTER 1 EACH in NS 250 ML IV SCH (18:20)
[2025-02-05] MEDS ORDERED: ONDANSETRON 4MG 2ML VIAL IV PRN (18:30)
[2025-02-05] MEDS ORDERED: ACETAMINOPHEN 325 MG TAB PO PRN (18:30)
[2025-02-05] MEDS ORDERED: FURO40TA2 PO (18:36)
[2025-02-05] MEDS ORDERED: CLIN-250 PO (18:36)
[2025-02-05] MEDS ORDERED: CARB15DR33 OU (18:36)
[2025-02-05] MEDS ORDERED: ASPI81CH33 PO (18:36)
[2025-02-05] MEDS ORDERED: ERGO500029 PO (18:36)
[2025-02-05] MEDS ORDERED: IPRA0.00 INH (18:38)
[2025-02-05] MEDS ORDERED: BACTDSTA PO (18:42)
[2025-02-05] MEDS ORDERED: ACET1TAB55 PO (18:44)
[2025-02-05] MEDS ORDERED: HOME MED LIST COMPLETE! XX SCH (18:45)
[2025-02-05] MEDS: cefTRIAXone SOD 1 GM in DEXTROSE 5% (D5W) ADV/MINI-BAG 50 ML IV SCH (19:06)
[2025-02-05] MEDS: IPRATROPIUM 0.5 MG/ALBUTEROL 2.5 MG INH SOL UD 3 ML NEB SCH (20:19)
[2025-02-05 21:02] VITALS: BP 110/78; TEMP 98.8; O2SAT 99
[2025-02-05 23:22] VITALS: O2SAT 93
[2025-02-06 03:40] VITALS: BP 121/74; TEMP 98.1; O2SAT 92
[2025-02-06 06:33] LABS: VANCOMYCIN RANDOM 10.6 UG/ML
[2025-02-06 06:34] LABS: C REACTIVE PROTEIN QUANTITATIV 5.08 MG/DL (<1.0); CALCIUM LEVEL 8.5 MG/DL (8.3-10.6); CARBON DIOXIDE LEVEL 24.0 MMOL/L (20-31); CHLORIDE LEVEL 101.0 MMOL/L (98-107); CREATININE FOR GFR 1.27 MG/DL (0.70-1.30); GLOMERULAR FILTRATION RATE 55.0 (>35); POTASSIUM SERUM 4.6 MMOL/L (3.5-5.1); SODIUM LEVEL 138.0 MMOL/L (136-145)
[2025-02-06] MEDS: predniSONE 20 MG TAB PO SCH (08:09)
[2025-02-06] MEDS: ENOXAPARIN 40 MG/0.4 ML SYRINGE (J1650 PER 10MG) SC SCH (08:09)
[2025-02-06] MEDS: VANCOMYCIN HCL 1,250 MG, VIAL MATE ADAPTER 1 EACH in NS 250 ML IV SCH (08:10)
[2025-02-06] MEDS ORDERED: ACETAMINOPHEN 325 MG TAB PO PRN (10:20)
[2025-02-06] MEDS ORDERED: NITROGLYCERIN 0.4 MG SUBL TABLET SL PRN (10:20)
[2025-02-06] MEDS ORDERED: ALBUTEROL 90 MCG/ACT 8 GM HFA INHALER INH PRN (10:20)
[2025-02-06 11:55] VITALS: BP 123/76; TEMP 97.8; O2SAT 92
[2025-02-06] MEDS: LACTULOSE 20 GM/30 ML SYRUP UDC PO SCH (12:19)
[2025-02-06] MEDS: ISOSORBIDE MONONITRATE 60 MG XR TAB PO SCH (12:21)
[2025-02-06] MEDS: DAPAGLIFLOZIN PROPANEDIOL 10 MG TABLET PO SCH (12:22)
[2025-02-06] MEDS: ASPIRIN 81 MG CHEWABLE TABLET PO SCH (12:22)
[2025-02-06] MEDS: SENNOSIDES/DOCUSATE SODIUM 8.6 MG/50MG TAB PO SCH (12:22)
[2025-02-06] MEDS: CLOPIDOGREL 75 MG TAB PO SCH (12:22)
[2025-02-06] MEDS: FUROSEMIDE 40 MG TAB PO SCH (12:22)
[2025-02-06] MEDS: ASCORBIC ACID 500 MG TAB PO SCH (12:23)
[2025-02-06] MEDS: PANTOPRAZOLE 40MG TAB PO SCH (12:23)
[2025-02-06] MEDS: METOPROLOL TART 25 MG TABLET PO SCH (12:24)
[2025-02-06] MEDS: IPRATROPIUM 0.5 MG/ALBUTEROL 2.5 MG INH SOL UD 3 ML INH SCH ×2 (12:35→18:55)
[2025-02-06] MEDS: SUCRALFATE 1 GM TAB PO SCH (13:16)
[2025-02-06 14:52] LABS: PLATELET COUNT, AUTOMATED 277 10^3/uL (150-450)
[2025-02-06] MEDS: GABAPENTIN 300 MG CAP PO SCH (16:28)
[2025-02-06 18:40] VITALS: O2SAT 86; O2SAT 94
[2025-02-06 19:34] VITALS: BP 112/75; TEMP 98.2; O2SAT 92
[2025-02-06 21:45] VITALS: O2SAT 93
[2025-02-06] MEDS: ATORVASTATIN 20 MG TAB PO SCH (22:04)
[2025-02-06] MEDS: TAMSULOSIN 0.4 MG CAP PO SCH (22:04)
[2025-02-07] VITALS (16 sets, daily range): BP systolic 113–133; BP diastolic 76–79; TEMP 97.5–99.1; O2SAT 65–97
[2025-02-07] MEDS: IPRATROPIUM 0.5 MG/ALBUTEROL 2.5 MG INH SOL UD 3 ML NEB PRN (02:31)
[2025-02-07] MEDS: MOM 30 ML SUSPENSION UDC PO PRN (04:59)
[2025-02-07] MEDS: DEXTROMETHORPHAN 60 MG/10 ML SUSP 90 ML BTL PO PRN (05:00)
[2025-02-07 06:36] LABS: VANCOMYCIN RANDOM 14.3 UG/ML
[2025-02-07 06:37] LABS: CALCIUM LEVEL 8.6 MG/DL (8.3-10.6); CARBON DIOXIDE LEVEL 22.0 MMOL/L (20-31); CHLORIDE LEVEL 103.0 MMOL/L (98-107); CREATININE FOR GFR 1.22 MG/DL (0.70-1.30); GLOMERULAR FILTRATION RATE 57.7 (>35); POTASSIUM SERUM 4.4 MMOL/L (3.5-5.1); SODIUM LEVEL 138.0 MMOL/L (136-145)
[2025-02-07] MEDS: DOCUSATE SODIUM 100 MG CAPSULE PO SCH (08:30)
[2025-02-07 10:04] LABS: BASO # 0.0 10^3/uL (0.0-0.2); BASO % 0.2 % (0.0-1.0); EOS # 0.0 10^3/uL (0.0-0.5); EOS % 0.1 % (0.0-3.0); LYMPH # 1.0 10^3/uL (1.5-5.0); LYMPH % 8.8 % (24.0-44.0); MONO # 1.0 10^3/uL (0.0-0.8); MONO % 9.2 % (2.0-8.0); NEUTROPHILS # 8.6 10^3/uL (1.5-8.5); NEUTROPHILS % 79.7 % (36.0-66.0); PLATELET COUNT, AUTOMATED 275 10^3/uL (150-450)
[2025-02-07 10:07] LABS: C REACTIVE PROTEIN QUANTITATIV 2.82 MG/DL (<1.0)
[2025-02-07] MEDS: BISACODYL 10 MG SUPP PR PRN (18:10)
[2025-02-08 04:31] VITALS: BP 130/87; TEMP 98.6; O2SAT 92
[2025-02-08 06:39] LABS: PLATELET COUNT, AUTOMATED 278 10^3/uL (150-450)
[2025-02-08 07:04] LABS: CALCIUM LEVEL 8.9 MG/DL (8.3-10.6); CARBON DIOXIDE LEVEL 25 MMOL/L (20-31); CHLORIDE LEVEL 101 MMOL/L (98-107); CREATININE FOR GFR 1.13 MG/DL (0.70-1.30); GLOMERULAR FILTRATION RATE 63.3 (>35); POTASSIUM SERUM 4.1 MMOL/L (3.5-5.1); SODIUM LEVEL 136 MMOL/L (136-145)
[2025-02-08 12:00] VITALS: BP 105/68; TEMP 98.6; O2SAT 94
[2025-02-08 14:11] LABS: C REACTIVE PROTEIN QUANTITATIV 1.38 MG/DL (<1.0)
[2025-02-08 14:22] LABS: ANTI-STREPTOLYSIN O QUANT < 25.0 IU/ML (<195)
[2025-02-08 15:03] LABS: VITAMIN B12 LEVEL 1017 PG/ML (211-911)
[2025-02-08 20:30] VITALS: BP 117/74; TEMP 98.6; O2SAT 93
[2025-02-08] MEDS: LINEZOLID 600 MG TABLET PO SCH (21:28)
[2025-02-08 22:32] VITALS: O2SAT 90
[2025-02-09 03:26] VITALS: BP 133/85; TEMP 98.1; O2SAT 95
[2025-02-09 04:25] VITALS: O2SAT 96
[2025-02-09 07:23] LABS: CALCIUM LEVEL 8.7 MG/DL (8.3-10.6); CARBON DIOXIDE LEVEL 26.0 MMOL/L (20-31); CHLORIDE LEVEL 103.0 MMOL/L (98-107); CREATININE FOR GFR 0.96 MG/DL (0.70-1.30); GLOMERULAR FILTRATION RATE 77.0 (>35); POTASSIUM SERUM 4.4 MMOL/L (3.5-5.1); SODIUM LEVEL 139.0 MMOL/L (136-145)
[2025-02-09] MEDS: BISACODYL 10 MG SUPP PR SCH (08:59)
[2025-02-09] MEDS ORDERED: COLA100C5 PO (11:21)
[2025-02-09] MEDS ORDERED: SENN18TA PO (11:21)
[2025-02-09] MEDS ORDERED: LINE1TAB6 PO (11:21)
[2025-02-09] MEDS ORDERED: PROB250C PO (11:21)
[2025-02-09 11:57] VITALS: BP 130/74; TEMP 97.2; O2SAT 95
[2025-02-09] MEDS: SENNA 8.6 MG TAB PO SCH (21:32)
[2025-02-09 21:35] VITALS: BP 137/82; TEMP 98.1; O2SAT 95
[2025-02-10 04:38] VITALS: BP 127/104; TEMP 98.1; O2SAT 94
[2025-02-10 06:54] LABS: CALCIUM LEVEL 8.6 MG/DL (8.3-10.6); CARBON DIOXIDE LEVEL 27.0 MMOL/L (20-31); CHLORIDE LEVEL 102.0 MMOL/L (98-107); CREATININE FOR GFR 1.19 MG/DL (0.70-1.30); GLOMERULAR FILTRATION RATE 59.5 (>35); POTASSIUM SERUM 4.0 MMOL/L (3.5-5.1); SODIUM LEVEL 140.0 MMOL/L (136-145)
[2025-02-10] MEDS: predniSONE 20 MG TAB PO SCH (08:48)
[2025-02-10 08:54] VITALS: BP 118/71
== END 2025-02-10 11:48 | DRG 603 ==
LOC: M ED 13:22 → M ED INP 18:18 → EEVIPCON 18:18 → M MSPAV 20:47
PROVIDERS: ADMIT Student in an Organized Health Care Education/Training Program; ATTEND Internal Medicine
DX: L03.116 Cellulitis of left lower limb (principal); I50.32 Chronic diastolic (congestive) heart failure; J44.1 Chronic obstructive pulmonary disease with (acute) exacerbation; I13.0 Hypertensive heart and chronic kidney disease with heart failure and stage 1 through stage 4 chronic kidney disease, or unspecified chronic kidney disease; I69.322 Dysarthria following cerebral infarction; E78.5 Hyperlipidemia, unspecified; K21.9 Gastro-esophageal reflux disease without esophagitis; D53.9 Nutritional anemia, unspecified; E11.22 Type 2 diabetes mellitus with diabetic chronic kidney disease; G47.00 Insomnia, unspecified; I87.2 Venous insufficiency (chronic) (peripheral); N18.9 Chronic kidney disease, unspecified; Z66 Do not resuscitate; Z85.46 Personal history of malignant neoplasm of prostate; Z95.1 Presence of aortocoronary bypass graft; Z95.828 Presence of other vascular implants and grafts; B96.1 Klebsiella pneumoniae [K. pneumoniae] as the cause of diseases classified elsewhere; Z79.82 Long term (current) use of aspirin; Z79.02 Long term (current) use of antithrombotics/antiplatelets; Z79.899 Other long term (current) drug therapy; Z86.14 Personal history of Methicillin resistant Staphylococcus aureus infection

== ENCOUNTER → 2025-02-17 | Outpatient (REF) | payer MEDICARE, MEDICAID ==
[~2025-02-17] MED LIST changes: +ACET1TAB55 PO; +ASPI81CH33 PO; +BACTDSTA PO; +CARB15DR33 OU; +CLIN-250 PO; +ERGO500029 PO; +FURO40TA2 PO; +IPRA0.00 INH; +LINE1TAB6 PO; +PROB250C PO; +SENN18TA PO
[2025-02-17 09:16] LABS: PLATELET COUNT, AUTOMATED 171 10^3/uL (150-450)
[2025-02-17 09:55] LABS: CALCIUM LEVEL 8.8 MG/DL (8.3-10.6); CARBON DIOXIDE LEVEL 25.0 MMOL/L (20-31); CHLORIDE LEVEL 103.0 MMOL/L (98-107); CREATININE FOR GFR 0.98 MG/DL (0.70-1.30); GLOMERULAR FILTRATION RATE 75.1 (>35); POTASSIUM SERUM 4.0 MMOL/L (3.5-5.1); SODIUM LEVEL 142.0 MMOL/L (136-145)
== END ==
LOC: SKLAB3 07:00
PROVIDERS: ATTEND Internal Medicine
DX: L03.90 Cellulitis, unspecified (principal)

== ENCOUNTER → 2025-03-06 | Outpatient (REF) | payer MEDICARE ==
[2025-03-06 15:40] LABS: CALCIUM LEVEL 8.4 MG/DL (8.3-10.6); CARBON DIOXIDE LEVEL 30.0 MMOL/L (20-31); CHLORIDE LEVEL 103.0 MMOL/L (98-107); CREATININE FOR GFR 1.11 MG/DL (0.70-1.30); GLOMERULAR FILTRATION RATE 64.7 (>35); MAGNESIUM LEVEL 2.2 MG/DL (1.8-2.4); POTASSIUM SERUM 4.0 MMOL/L (3.5-5.1); SODIUM LEVEL 142.0 MMOL/L (136-145)
== END ==
LOC: SKLAB3 14:00
PROVIDERS: ATTEND Internal Medicine
DX: I50.9 Heart failure, unspecified (principal)

== ENCOUNTER → 2025-03-12 | Outpatient (REF) | payer MEDICARE | LOC: SKLAB3 12:19 | PROVIDERS: ATTEND Internal Medicine | DX: R06.02 Shortness of breath (principal) ==

== ENCOUNTER → 2025-05-04 | Outpatient (REF) | payer MEDICARE, MEDICAID ==
[2025-05-04 13:53] LABS: APPEARANCE, URINE CLEAR (CLEAR); BACTERIA, URINE AUTO NEGATIVE (NEGATIVE); BILIRUBIN, URINE AUTO NEGATIVE (NEGATIVE); BLOOD, URINE BLOOD NEGATIVE (NEGATIVE); GLUCOSE, URINE (UA) AUTO 3+ mg/dL (NEGATIVE); KETONE, URINE AUTO NEGATIVE (NEGATIVE); LEUKOCYTE ESTERASE, URINE AUTO NEGATIVE (NEGATIVE); MUCUS, URINE SMALL (NEGATIVE); NITRITE, URINE AUTO NEGATIVE (NEGATIVE); PROTEIN, URINE AUTO NEGATIVE (NEGATIVE); RBC, URINE AUTO 0 /HPF (0-3); SPECIFIC GRAVITY URINE AUTO 1.006 (1.002-1.035); SQUAMOUS EPITHELIAL CELL UR AU 0 /HPF (0-6); UROBILINOGEN, URINE AUTO 0.2 mg/dL (0.0-2.0); WBC, URINE AUTO 0 /HPF (0-3)
== END ==
LOC: SKLAB3 13:06
PROVIDERS: ATTEND Family Medicine
DX: R30.0 Dysuria (principal)

== ENCOUNTER → 2025-05-04 | Outpatient (REF) | payer MEDICARE, MEDICAID ==
[2025-05-04 08:20] LABS: PLATELET COUNT, AUTOMATED 257 10^3/uL (150-450)
[2025-05-04 08:46] LABS: ALT/SGPT 20.0 U/L (7.0-40); AST/SGOT 23.0 U/L (<34); CALCIUM LEVEL 9.4 MG/DL (8.3-10.6); CARBON DIOXIDE LEVEL 27.0 MMOL/L (20-31); CHLORIDE LEVEL 102.0 MMOL/L (98-107); CHOLESTEROL LEVEL 87.0 MG/DL (<200); CHOLESTEROL RISK RATIO 3.21 (<5); CREATININE FOR GFR 1.06 MG/DL (0.70-1.30); GLOMERULAR FILTRATION RATE 68.4 (>35); LDL CHOLESTEROL 41.1 MG/DL (<100); NON-HDL-C 59.9 MG/DL; POTASSIUM SERUM 4.0 MMOL/L (3.5-5.1); SODIUM LEVEL 141.0 MMOL/L (136-145); TOTAL 25(OH) VITAMIN D 61.2 NG/ML (20.0-100.0); TRIGLYCERIDES LEVEL 94.0 MG/DL (<150); VITAMIN B12 LEVEL 1244.0 PG/ML (211-911)
== END ==
LOC: SKLAB3 07:00
PROVIDERS: ATTEND Family Medicine
DX: E55.9 Vitamin D deficiency, unspecified (principal); I10 Essential (primary) hypertension; E78.5 Hyperlipidemia, unspecified; E53.8 Deficiency of other specified B group vitamins

== ENCOUNTER → 2025-05-05 | Outpatient (REF) | payer MEDICARE, MEDICAID ==
[2025-05-05 02:59] LABS: APPEARANCE, URINE CLEAR (CLEAR); BACTERIA, URINE AUTO NEGATIVE (NEGATIVE); BILIRUBIN, URINE AUTO NEGATIVE (NEGATIVE); BLOOD, URINE BLOOD NEGATIVE (NEGATIVE); GLUCOSE, URINE (UA) AUTO 3+ mg/dL (NEGATIVE); KETONE, URINE AUTO NEGATIVE (NEGATIVE); LEUKOCYTE ESTERASE, URINE AUTO NEGATIVE (NEGATIVE); NITRITE, URINE AUTO NEGATIVE (NEGATIVE); PROTEIN, URINE AUTO NEGATIVE (NEGATIVE); RBC, URINE AUTO 0 /HPF (0-3); SPECIFIC GRAVITY URINE AUTO 1.014 (1.002-1.035); SQUAMOUS EPITHELIAL CELL UR AU 0 /HPF (0-6); UROBILINOGEN, URINE AUTO 0.2 mg/dL (0.0-2.0); WBC, URINE AUTO 0 /HPF (0-3)
== END ==
LOC: SKLAB3 07:00
PROVIDERS: ATTEND Family Medicine
DX: R30.0 Dysuria (principal)

== ENCOUNTER → 2025-07-06 | Outpatient (CLI) | payer MEDICARE, MEDICAID ==
[~2025-07-06] MED LIST changes: -BACTDSTA PO; +SULF-8 PO
== END ==
LOC: M RAD 12:35
PROVIDERS: ATTEND Nurse Practitioner
DX: M51.26 Other intervertebral disc displacement, lumbar region (principal)